=== PATIENT | female | born 1990 | race African-American/Black ===

== ENCOUNTER 2016-07-15 15:44 | Emergency (ER) | payer OTHER ==
[2016-07-15 16:12] VITALS: BP 120/72; PULSE 87; RESP 20; TEMP 97.7
[2016-07-15] MEDS ORDERED: diphenhydrAMINE 50 MG CAP PO STA (16:36)
[2016-07-15] MEDS ORDERED: IBUPROFEN 600 MG STARTER PACK 4 TAB BTL PO STA (16:36)
--- NOTE | 2016-07-15 16:50 | XR ---
EXAMINATION TYPE: XR chest 2V DATE OF EXAM: 07/15/2016 4:41 PM HISTORY: Pain. REFERENCE: Previous study dated 01/22/2016. FINDINGS: The lungs are clear. Pleural spaces are clear. Heart size is normal. IMPRESSION: NO ACTIVE INTRATHORACIC DISEASE.
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
== END 2016-07-15 17:34 | disposition home or self-care (01) ==
LOC: EC 15:44
DX: S02.5XXA Fracture of tooth (traumatic), initial encounter for closed fracture (principal); K02.9 Dental caries, unspecified; K04.7 Periapical abscess without sinus; B34.9 Viral infection, unspecified; L50.9 Urticaria, unspecified; F17.200 Nicotine dependence, unspecified, uncomplicated; Z79.3 Long term (current) use of hormonal contraceptives; Z88.0 Allergy status to penicillin; Z91.041 Radiographic dye allergy status; X58.XXXA Exposure to other specified factors, initial encounter
CPT/HCPCS: 71020; 99282

== ENCOUNTER 2016-08-18 15:32 | Emergency (ER) | payer OTHER ==
[2016-08-18] MEDS ORDERED: SODIUM CHLORIDE 0.9% 1,000 ML IV STA ×2 (16:17)
[2016-08-18] MEDS ORDERED: HYDROmorphone 1 MG/ML 1 ML SYRINGE IVP STA (16:18)
[2016-08-18] MEDS ORDERED: ONDANSETRON 4 MG/2 ML VIAL IVP STA (16:18)
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
[2016-08-18 16:40] LABS: Appearance,Urine Cloudy (Clear); Bacteria,Urine Few /hpf; Bilirubin,Urine Negative (Negative); Glucose,Urine (UA) Negative (Negative); Ketones,Urine Negative (Negative); Leukocyte Esterase,Urine Moderate (Negative); Nitrite,Urine Negative (Negative); PH, Urine 5.5 (5.0-8.0); Particle Count 10154; Protein,Urine Negative (Negative); RBC,Urine 2 /hpf (0-5); Specific Gravity,Urine 1.008 (1.001-1.035); Squamous Epithelial Cell,Urine 13 /hpf (0-4); UA Billing (MACRO vs. MICRO) MICRO; Urobilinogen,Urine <2.0 mg/dL (<2.0); WBC,Urine 4 /hpf (0-5)
[2016-08-18 16:54] LABS: Basophils % (A) 0 %; CH 26.6; CHCM 31.5; Eosinophils # (A) 0.1 k/uL (0-0.7); Eosinophils % (A) 1 %; HCT 45.2 % (34.0-46.0); HDW 2.35; HGB 14.1 gm/dL (11.4-16.0); Luc # (Auto) 0.09; Luc % (Auto) 2; Lymphocytes # (A) 2.1 k/uL (1.0-4.8); Lymphocytes % (A) 35 %; MCH 26.4 pg (25.0-35.0); MCHC 31.1 g/dL (31.0-37.0); MCV 84.9 fL (80.0-100.0); Mean Platelet Volume 6.3; Monocytes # (A) 0.2 k/uL (0-1.0); Monocytes % (A) 4 %; Neutrophils # (A) 3.4 k/uL (1.3-7.7); Neutrophils % (A) 58 %; RBC 5.32 m/uL (3.80-5.40); RDW 14.2 % (11.5-15.5); WBC 5.8 k/uL (3.8-10.6); WBC (Perox) 5.99
[2016-08-18 17:01] LABS: ALT 29 U/L (9-52); AST 19 U/L (14-36); Alkaline Phosphatase 64 U/L (38-126); Amylase 50 U/L (30-110); Anion Gap 6 mmol/L; Blood Urea Nitrogen 14 mg/dL (7-17); Calcium 9.2 mg/dL (8.4-10.2); Carbon Dioxide 26 mmol/L (22-30); Chloride 109 mmol/L (98-107); Glucose 83 mg/dL (74-99); Non-African American GFR(MDRD) >60 (>60 ml/min/1.73 sqM); Potassium 4.1 mmol/L (3.5-5.1); Sodium 141 mmol/L (137-145); Total Bilirubin 0.6 mg/dL (0.2-1.3); Total Protein 6.1 g/dL (6.3-8.2)
[2016-08-18 17:09] LABS: Creatine Kinase 74 U/L (30-135)
[2016-08-18 17:23] LABS: Creatine Kinase MB 0.5 ng/mL (0.0-2.4); Troponin I <0.012 ng/mL (0.000-0.034)
--- NOTE | 2016-08-18 17:29 | US ---
EXAMINATION TYPE: US transvaginal DATE OF EXAM: 08/18/2016 5:03 PM COMPARISON: NONE CLINICAL HISTORY: pain. Abd and back pain TECHNIQUE: TV Date of LMP: 08/11/2016 EXAM MEASUREMENTS: Uterus: 8.4 x 4.8 x 3.8 cm Endometrial Stripe: 0.4 cm Right Ovary: 2.3 x 2.1 x 1.7 cm Left Ovary: 3.2 x 3.2 x 3.4 cm 1. Uterus: Anteverted wnl 2. Endometrium: wnl 3. Right Ovary: wnl 4. Left Ovary: 3.6cm simple cyst seen Spectral, color and waveform doppler imaging shows good arterial and venous flow within the lt ovar y; there is no evidence for ovarian torsion. Rt ovary sits under uterus and too difficult to penetrat e to sample blood flow, but appears wnl. 5. Bilateral Adnexa: wnl 6. Posterior cul-de-sac: wnl IMPRESSION: There is a simple left ovarian cyst. Normal uterus and endometrium.
--- NOTE | 2016-08-18 17:32 | XR ---
EXAMINATION TYPE: XR chest 2V DATE OF EXAM: 08/18/2016 5:14 PM COMPARISON: 07/15/2016 HISTORY: Cough TECHNIQUE: Frontal and lateral views of the chest are obtained. FINDINGS: Heart and mediastinum are normal. Lungs are clear. Diaphragm is normal. Bony thorax appear s normal. IMPRESSION: Normal chest. No change.
[2016-08-18 17:43] VITALS: BP 115/55; PULSE 78; RESP 18; TEMP 98.6
[2016-08-18] MEDS ORDERED: KETOROLAC 30 MG/ML 1 ML VIAL IVP STA (17:57)
== END 2016-08-18 18:28 | disposition home or self-care (01) ==
LOC: EC 15:32
DX: J42 Unspecified chronic bronchitis (principal); N83.202 Unspecified ovarian cyst, left side; R11.2 Nausea with vomiting, unspecified; R19.7 Diarrhea, unspecified; F17.200 Nicotine dependence, unspecified, uncomplicated; Z79.3 Long term (current) use of hormonal contraceptives; Z91.040 Latex allergy status
CPT/HCPCS: 36415; 80053; 82150; 82550; 82553; 83690; 84484; 85025; 81001; 81025; 87502; 71020; 93976; 76830; 99285; 96374; 96375 ×2; 96361; J2405; J1885; J1170

== ENCOUNTER 2016-09-25 10:50 | Emergency (ER) | payer OTHER ==
[2016-09-25 11:03] VITALS: TEMP 98.2
[2016-09-25] MEDS ORDERED: ONDANSETRON ODT 4 MG TAB PO STA (11:41)
[2016-09-25] MEDS ORDERED: HYDROmorphone 1 MG/ML 1 ML SYRINGE IM STA (11:41)
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
--- NOTE | 2016-09-25 12:04 | CT ---
EXAMINATION TYPE: CT brain wo con DATE OF EXAM: 09/25/2016 COMPARISON: Prior CT brain 17 June 2015 HISTORY: Lt side head pain CT DLP: 1054.2 mGycm Automated exposure control for dose reduction was used. FINDINGS: There is no acute intracranial hemorrhage, mass effect, or midline shift identified. The ventricles and sulci are within normal limits in size. The globes are intact and the visualized sinuses are rem arkable for inflammatory change in the ethmoid air cells.. IMPRESSION: No acute intracranial hemorrhage, mass effect, or midline shift is seen. Sinus disease.
[2016-09-25 12:18] VITALS: BP 131/81; PULSE 89; RESP 18
== END 2016-09-25 12:27 | disposition home or self-care (01) ==
LOC: EC 10:50
DX: J01.90 Acute sinusitis, unspecified (principal); R51 Headache; R11.0 Nausea; F17.210 Nicotine dependence, cigarettes, uncomplicated; Z79.3 Long term (current) use of hormonal contraceptives; Z91.041 Radiographic dye allergy status
CPT/HCPCS: 70450; 99284; 96372; J1170

== ENCOUNTER 2016-09-28 04:29 | Emergency (ER) | payer OTHER ==
[2016-09-28 04:38] VITALS: TEMP 97.7
[2016-09-28] MEDS ORDERED: METOCLOPRAMIDE 5 MG/ML 2 ML VIAL IVP STA (04:59)
[2016-09-28] MEDS ORDERED: SODIUM CHLORIDE 0.9% 1,000 ML IV ONE (04:59)
[2016-09-28] MEDS ORDERED: KETOROLAC 30 MG/ML 1 ML VIAL IVP STA (04:59)
[2016-09-28] MEDS ORDERED: OXYMETAZOLINE 0.05% NASL SPRAY 15 ML NASAL STA (05:25)
[2016-09-28 05:26] LABS: Basophils # (A) 0.1 k/uL (0-0.2); Basophils % (A) 1 %; CH 26.3; CHCM 31.4; Eosinophils # (A) 0.1 k/uL (0-0.7); Eosinophils % (A) 1 %; HCT 43.9 % (34.0-46.0); HDW 2.24; HGB 13.8 gm/dL (11.4-16.0); Luc # (Auto) 0.13; Luc % (Auto) 2; Lymphocytes # (A) 1.4 k/uL (1.0-4.8); Lymphocytes % (A) 18 %; MCH 26.5 pg (25.0-35.0); MCHC 31.5 g/dL (31.0-37.0); MCV 84.1 fL (80.0-100.0); Mean Platelet Volume 6.4; Monocytes # (A) 0.3 k/uL (0-1.0); Monocytes % (A) 4 %; Neutrophils # (A) 5.7 k/uL (1.3-7.7); Neutrophils % (A) 74 %; RBC 5.22 m/uL (3.80-5.40); RDW 13.2 % (11.5-15.5); WBC 7.8 k/uL (3.8-10.6); WBC (Perox) 7.74
[2016-09-28] MEDS ORDERED: PROPARACAINE 0.5% OPHTH DROPS 15 ML BTL LEFT EYE SCH (05:30)
[2016-09-28 05:40] LABS: Anion Gap 10 mmol/L; Blood Urea Nitrogen 11 mg/dL (7-17); C Reactive Protein <5.0 mg/L (<10.0); Calcium 9.2 mg/dL (8.4-10.2); Carbon Dioxide 20 mmol/L (22-30); Chloride 111 mmol/L (98-107); Glucose 83 mg/dL (74-99); Non-African American GFR(MDRD) >60 (>60 ml/min/1.73 sqM); Potassium 3.8 mmol/L (3.5-5.1); Sodium 141 mmol/L (137-145)
--- NOTE | 2016-09-28 06:27 | ED ---
Headache HPI - General Chief Complaint: Headache Stated Complaint: headache,neck pain Time Seen by Provider: 09/28/16 04:46 Mode of arrival: wheelchair Limitations: no limitations - History of Present Illness Initial Comments: Patient is a 26-year-old woman who comes in for reevaluation of a left-sided headache. She states it's been going on 2 days now. She was seen here yesterday, had a computed tomography scan was told she has sinusitis. She states that in addition to the symptoms she was having yesterday, the left side of her scalp is somewhat tender. She states that headache has not worsened. She has not had any change in vision, speech, or swallowing. She is not having any change in hearing. She is not having any strokelike symptoms, including no weakness or numbness of the extremities. Patient describes the headache as seeming to have 2 components. She has a pressure component to the left facial area. She has a burning and tingling sensation to the left side of the face as well. She rates the pain as constant, severe, but unchanged from yesterday. Symptoms are worse if she touches the left side of her scalp. She has not noted any relieving factors. No associated neck stiffness. She has not noted a rash. MD Complaint: headache -: days(s) Onset Description: gradual Location: left, frontal, facial Severity: severe Quality: aching, other (Burning) Consistency: constant Improves With: nothing Worsens With: none Treatments Prior to Arrival: prescription analgesic - Related Data Home Medications Medication Instructions Recorded Confirmed Etonogestrel [Nexplanon ( 68 gm IM DIRECTED 07/15/16 09/28/16 control implant)] Acetaminophen [Tylenol] 650 mg PO Q6H PRN 08/18/16 09/28/16 Ibuprofen [Motrin] 200 - 400 mg PO Q6HR PRN 08/18/16 09/28/16 Previous Rx's Medication Instructions Recorded Dicyclomine [Bentyl] 20 mg PO QID #20 tablet 08/18/16 Naproxen 500 mg PO Q12HR 14 Days 08/18/16 Ondansetron Odt [Zofran ODT] 4 mg PO Q8HR PRN #20 tab 08/18/16 Amoxicillin/Potassium Clav 1 each PO Q12HR #20 tab 09/25/16 [Augmentin 875-125 Tablet] Hydrocodone/Acetaminophen [[place] 1 each PO Q6HR PRN #10 tab 09/25/16 5-325] valACYclovir HCL [Valtrex] 1,000 mg PO TID #21 tablet 09/28/16 Allergies Allergy/AdvReac Type Severity Reaction Status Date / Time Iodinated Contrast Media - Allergy BURNING Verified 08/18/16 16:06 Oral and FROM THE INSIDE/ITCHING Review of Systems ROS Statement: Those systems with pertinent positive or pertinent negative responses have been documented in the HPI. ROS Other: All systems not noted in ROS Statement are negative. Past Medical History Past Medical History: Asthma, COPD Additional Past Medical History / Comment(s): concussions History of Any Multi-Drug Resistant Organisms: None Reported Additional Past Surgical History / Comment(s): d&c Past Psychological History: Anxiety, Bipolar, Depression Smoking Status: Current every day smoker Past Alcohol Use History: Occasional Past Drug Use History: Marijuana General Exam Limitations: no limitations General appearance: alert, in no apparent distress, obese Head exam: Present: atraumatic, normocephalic Eye exam: Present: normal appearance, PERRL, EOMI, conjunctival injection (Left) . Absent: scleral icterus, periorbital swelling, periorbital tenderness Pupils: Present: other (Intraocular pressure by the iCare device is 21.) ENT exam: Present: normal oropharynx, mucous membranes moist, TM's normal bilaterally, normal external ear exam Neck exam: Present: normal inspection, full ROM, lymphadenopathy. Absent: tenderness, meningismus Respiratory exam: Present: normal lung sounds bilaterally. Absent: respiratory distress, wheezes, rales, rhonchi, stridor Cardiovascular Exam: Present: normal rhythm, tachycardia, normal heart sounds. Absent: systolic murmur, diastolic murmur, rubs, gallop GI/Abdominal exam: Present: soft. Absent: distended, tenderness, guarding, rebound, mass Extremities exam: Present: normal inspection, normal capillary refill. Absent: pedal edema, calf tenderness Neurological exam: Present: alert, oriented X3, CN II-XII intact, normal gait. Absent: motor sensory deficit Skin exam: Present: warm, dry, intact, normal color. Absent: rash, cyanosis, diaphoretic, erythema, petechiae, pallor, mottled Course Vital Signs 09/28/16 09/28/16 04:33 06:45 Temperature 97.7 F Pulse Rate 135 H 78 Respiratory 20 16 Rate Blood Pressure 140/67 100/54 O2 Sat by Pulse 94 L Oximetry Medical Decision Making - Medical Decision Making The patient does have marked tenderness of the skin on the left scalp, and I suspect the patient may have the onset of zoster. She does state that her brother had this. I did apply fluorescein stain and examined the left eye, there is no dendrite. Discussed return parameters. Started Valtrex here, discussed appropriate follow -up and further care including return parameters. - Lab Data Result diagrams: 09/28/16 05:00 09/28/16 05:00 Lab Results 09/28/16 09/28/16 Range/Units 05:00 05:00 WBC 7.8 (3.8-10.6) k/uL RBC 5.22 (3.80-5.40) m/uL Hgb 13.8 (11.4-16.0) gm/dL Hct 43.9 (34.0-46.0) % MCV 84.1 (80.0-100.0) fL MCH 26.5 (25.0-35.0) pg MCHC 31.5 (31.0-37.0) g/dL RDW 13.2 (11.5-15.5) % Plt Count 217 (150-450) k/uL Neutrophils % 74 % Lymphocytes % 18 % Monocytes % 4 % Eosinophils % 1 % Basophils % 1 % Neutrophils # 5.7 (1.3-7.7) k/uL Lymphocytes # 1.4 (1.0-4.8) k/uL Monocytes # 0.3 (0-1.0) k/uL Eosinophils # 0.1 (0-0.7) k/uL Basophils # 0.1 (0-0.2) k/uL ESR 10 (0-20) mm/hr Sodium 141 (137-145) mmol/L Potassium 3.8 (3.5-5.1) mmol/L Chloride 111 H (98-107) mmol/L Carbon Dioxide 20 L (22-30) mmol/L Anion Gap 10 mmol/L BUN 11 (7-17) mg/dL Creatinine 0.80 (0.52-1.04) mg/dL Est GFR (MDRD) Af Amer >60 (>60 ml/min/1.73 sqM) Est GFR (MDRD) Non-Af >60 (>60 ml/min/1.73 sqM) Glucose 83 (74-99) mg/dL Calcium 9.2 (8.4-10.2) mg/dL C-Reactive Protein <5.0 (<10.0) mg/L Disposition Clinical Impression: Headache, Sinusitis, acute Narrative: suspected herpes zoster Disposition: HOME SELF-CARE Condition: Fair Instructions: Acute Headache (ED) Prescriptions: valACYclovir HCL [Valtrex] 1,000 mg PO TID #21 tablet Referrals: None,Stated [Primary Care Provider] - 1-2 days
[2016-09-28] MEDS ORDERED: valACYclovir 500 MG TAB PO STA (06:28)
[2016-09-28 06:32] LABS: Erythrocyte Sedimentation Rate 10 mm/hr (0-20)
[2016-09-28 06:46] VITALS: BP 100/54; PULSE 78; RESP 16
[2016-09-28] MEDS ORDERED: HYDROcodone/APAP 5-325MG 1 EACH TAB PO STA (06:50)
== END 2016-09-28 06:55 | disposition home or self-care (01) ==
LOC: EC 04:29
DX: J01.90 Acute sinusitis, unspecified (principal); R51 Headache; M54.2 Cervicalgia; F17.200 Nicotine dependence, unspecified, uncomplicated; Z79.3 Long term (current) use of hormonal contraceptives; Z91.041 Radiographic dye allergy status
CPT/HCPCS: 36415; 80048; 85652; 85025; 86140; 99284; 96374; 96375; 96361; J2765; J1885

== ENCOUNTER 2017-12-23 11:09 | Emergency (ER) | payer OTHER ==
[2017-12-23] MEDS ORDERED: SODIUM CHLORIDE 0.9% 1,000 ML IV ONE (11:52)
[2017-12-23] MEDS ORDERED: KETOROLAC 30 MG/ML 1 ML VIAL IVP STA (11:52)
[2017-12-23 12:16] LABS: Basophils # (A) 0.1 k/uL (0-0.2); Basophils % (A) 1 %; Eosinophils # (A) 0.2 k/uL (0-0.7); Eosinophils % (A) 2 %; HCT 42.4 % (34.0-46.0); HGB 13.9 gm/dL (11.4-16.0); Lymphocytes # (A) 0.7 k/uL (1.0-4.8); Lymphocytes % (A) 6 %; MCH 26.6 pg (25.0-35.0); MCHC 32.8 g/dL (31.0-37.0); MCV 81.1 fL (80.0-100.0); Mean Platelet Volume 6.4; Monocytes # (A) 0.5 k/uL (0-1.0); Monocytes % (A) 4 %; Neutrophils # (A) 9.9 k/uL (1.3-7.7); Neutrophils % (A) 87 %; Platelet Count 215 k/uL (150-450); RBC 5.23 m/uL (3.80-5.40); RDW 13.3 % (11.5-15.5); WBC 11.4 k/uL (3.8-10.6)
[2017-12-23 12:21] LABS: Appearance,Urine Cloudy (Clear); Bacteria,Urine Rare /hpf; Bilirubin,Urine Negative (Negative); Blood,Urine Large (Negative); Budding Yeast,Urine Few /hpf; Color,Urine Light Yellow; Glucose,Urine (UA) Negative (Negative); Ketones,Urine Negative (Negative); Leukocyte Esterase,Urine Large (Negative); Mucus,Urine Rare /hpf; Nitrite,Urine Negative (Negative); Protein,Urine 1+ (Negative); RBC,Urine 10 /hpf (0-5); Specific Gravity,Urine 1.013 (1.001-1.035); Squamous Epithelial Cell,Urine 7 /hpf (0-4); Urobilinogen,Urine <2.0 mg/dL (<2.0); WBC,Urine >182 /hpf (0-5)
[2017-12-23] MEDS ORDERED: cefTRIAXone IN SWFI 2,000 MG/20 ML SYRINGE IVP STA (12:25)
[2017-12-23 12:26] LABS: ALT 27 U/L (9-52); AST 15 U/L (14-36); Albumin 3.5 g/dL (3.5-5.0); Alkaline Phosphatase 75 U/L (38-126); Anion Gap 7 mmol/L; Blood Urea Nitrogen 9 mg/dL (7-17); Calcium 8.9 mg/dL (8.4-10.2); Carbon Dioxide 24 mmol/L (22-30); Chloride 107 mmol/L (98-107); Glucose 92 mg/dL (74-99); Potassium 4.1 mmol/L (3.5-5.1); Sodium 138 mmol/L (137-145); Total Bilirubin 0.5 mg/dL (0.2-1.3); Total Protein 6.3 g/dL (6.3-8.2)
--- NOTE | 2017-12-23 12:27 | ED ---
Female Urogenital HPI - General Chief complaint: Urogenital Stated complaint: back pain Time Seen by Provider: 12/23/17 11:34 Source: patient, RN notes reviewed Mode of arrival: ambulatory Limitations: no limitations - History of Present Illness Initial comments: This a 27-year-old female presents emergency Department chief complaint of dysuria, flank pain. Patient states his started over the last week because she' s been holding her urine. Patient states that it hurts to urinate and it miller. Patient denies any chance of . She has no vaginal been no vaginal discharge. Patient states her last mental cycle was 11 days ago. Patient denies any fever. States that she's had some chills. Patient denies any chest pain, shortness breath. Patient states that makes her symptoms better. She's had no diarrhea no constipation. Last Menstrual Period: 12/12/17 - Related Data Home Medications Medication Instructions Recorded Confirmed Etonogestrel [Nexplanon ( 68 gm IM DIRECTED 07/15/16 09/28/16 control implant)] Acetaminophen [Tylenol] 650 mg PO Q6H PRN 08/18/16 09/28/16 Ibuprofen [Motrin] 200 - 400 mg PO Q6HR PRN 08/18/16 09/28/16 Previous Rx's Medication Instructions Recorded Dicyclomine [Bentyl] 20 mg PO QID #20 tablet 08/18/16 Naproxen 500 mg PO Q12HR 14 Days tab 08/18/16 Ondansetron Odt [Zofran ODT] 4 mg PO Q8HR PRN #20 tab 08/18/16 Amoxicillin/Potassium Clav 1 each PO Q12HR #20 tab 09/25/16 [Augmentin 875-125 Tablet] Hydrocodone/Acetaminophen [[place] 1 each PO Q6HR PRN #10 tab 09/25/16 5-325] valACYclovir HCL [Valtrex] 1,000 mg PO TID #21 tablet 09/28/16 Cephalexin [Keflex] 500 mg PO Q6HR #40 cap 12/23/17 Allergies Allergy/AdvReac Type Severity Reaction Status Date / Time Iodinated Contrast- Oral and Allergy BURNING Verified 12/23/17 11:32 IV Dye FROM THE INSIDE/ITCHING Review of Systems ROS Statement: Those systems with pertinent positive or pertinent negative responses have been documented in the HPI. ROS Other: All systems not noted in ROS Statement are negative. Past Medical History Past Medical History: Asthma, COPD Additional Past Medical History / Comment(s): concussions History of Any Multi-Drug Resistant Organisms: None Reported Additional Past Surgical History / Comment(s): d&c Past Psychological History: Anxiety, Bipolar, Depression Smoking Status: Current every day smoker Past Alcohol Use History: Occasional Past Drug Use History: Marijuana General Exam Limitations: no limitations General appearance: alert, in no apparent distress Head exam: Present: atraumatic, normocephalic, normal inspection Neck exam: Present: normal inspection. Absent: tenderness, meningismus, lymphadenopathy Respiratory exam: Present: normal lung sounds bilaterally. Absent: respiratory distress, wheezes, rales, rhonchi, stridor Cardiovascular Exam: Present: regular rate, normal rhythm, normal heart sounds. Absent: systolic murmur, diastolic murmur, rubs, gallop, clicks GI/Abdominal exam: Present: soft, tenderness (mild suprapubic tenderness), normal bowel sounds. Absent: distended, guarding, rebound, rigid Back exam: Present: CVA tenderness (R), CVA tenderness (L) Skin exam: Present: warm, dry, intact, normal color. Absent: rash Course Vital Signs 12/23/17 12/23/17 11:30 13:26 Temperature 98.5 F Pulse Rate 98 87 Respiratory 18 22 Rate Blood Pressure 128/82 108/55 O2 Sat by Pulse 95 97 Oximetry Medical Decision Making - Medical Decision Making 27-year-old female presented emergency department for flank pain, dysuria. Patient does have evidence of urinary tract infection mild leukocytosis. Patient may have early signs of pyelonephritis. Patient will be discharged on antibiotics that she did receive Rocephin emergency department. Patient's found to be also which was not affected by patient. Patient ultrasound does not reveal IUP but beta hCG is currently 125. Patient will follow-up with [facility]. Patient return for any worsening symptoms. - Lab Data Result diagrams: 12/23/17 12:00 12/23/17 12:00 Lab Results 12/23/17 12/23/17 12/23/17 Range/Units 12:00 12:00 12:00 WBC 11.4 H (3.8-10.6) k/uL RBC 5.23 (3.80-5.40) m/uL Hgb 13.9 (11.4-16.0) gm/dL Hct 42.4 (34.0-46.0) % MCV 81.1 (80.0-100.0) fL MCH 26.6 (25.0-35.0) pg MCHC 32.8 (31.0-37.0) g/dL RDW 13.3 (11.5-15.5) % Plt Count 215 (150-450) k/uL Neutrophils % 87 % Lymphocytes % 6 % Monocytes % 4 % Eosinophils % 2 % Basophils % 1 % Neutrophils # 9.9 H (1.3-7.7) k/uL Lymphocytes # 0.7 L (1.0-4.8) k/uL Monocytes # 0.5 (0-1.0) k/uL Eosinophils # 0.2 (0-0.7) k/uL Basophils # 0.1 (0-0.2) k/uL Sodium (137-145) mmol/L Potassium (3.5-5.1) mmol/L Chloride (98-107) mmol/L Carbon Dioxide (22-30) mmol/L Anion Gap mmol/L BUN (7-17) mg/dL Creatinine (0.52-1.04) mg/dL Est GFR (CKD-EPI)AfAm (>60 ml/min/1.73 sqM) Est GFR (CKD-EPI)NonAf (>60 ml/min/1.73 sqM) Glucose (74-99) mg/dL Calcium (8.4-10.2) mg/dL Total Bilirubin (0.2-1.3) mg/dL AST (14-36) U/L ALT (9-52) U/L Alkaline Phosphatase (38-126) U/L Total Protein (6.3-8.2) g/dL Albumin (3.5-5.0) g/dL HCG, Quant mIU/mL Urine Color Light Yellow Urine Appearance Cloudy H (Clear) Urine pH 6.0 (5.0-8.0) Ur Specific [place] 1.013 (1.001-1.035) Urine Protein 1+ H (Negative) Urine Glucose (UA) Negative (Negative) Urine Ketones Negative (Negative) Urine Blood Large H (Negative) Urine Nitrite Negative (Negative) Urine Bilirubin Negative (Negative) Urine Urobilinogen <2.0 (<2.0) mg/dL Ur Leukocyte Esterase Large H (Negative) Urine RBC 10 H (0-5) /hpf Urine WBC >182 H (0-5) /hpf Ur Squamous Epith Cells 7 H (0-4) /hpf Urine Bacteria Rare H (None) /hpf Urine Mucus Rare H (None) /hpf Urine Yeast (Budding) Few H (None) /hpf Urine HCG, Qual Detected (Not Detectd) Blood Type Blood Type Recheck 12/23/17 12/23/17 12/23/17 Range/Units 12:00 13:14 13:14 WBC (3.8-10.6) k/uL RBC (3.80-5.40) m/uL Hgb (11.4-16.0) gm/dL Hct (34.0-46.0) % MCV (80.0-100.0) fL MCH (25.0-35.0) pg MCHC (31.0-37.0) g/dL RDW (11.5-15.5) % Plt Count (150-450) k/uL Neutrophils % % Lymphocytes % % Monocytes % % Eosinophils % % Basophils % % Neutrophils # (1.3-7.7) k/uL Lymphocytes # (1.0-4.8) k/uL Monocytes # (0-1.0) k/uL Eosinophils # (0-0.7) k/uL Basophils # (0-0.2) k/uL Sodium 138 (137-145) mmol/L Potassium 4.1 (3.5-5.1) mmol/L Chloride 107 (98-107) mmol/L Carbon Dioxide 24 (22-30) mmol/L Anion Gap 7 mmol/L BUN 9 (7-17) mg/dL Creatinine 0.75 (0.52-1.04) mg/dL Est GFR (CKD-EPI)AfAm >90 (>60 ml/min/1.73 sqM) Est GFR (CKD-EPI)NonAf >90 (>60 ml/min/1.73 sqM) Glucose 92 (74-99) mg/dL Calcium 8.9 (8.4-10.2) mg/dL Total Bilirubin 0.5 (0.2-1.3) mg/dL AST 15 (14-36) U/L ALT 27 (9-52) U/L Alkaline Phosphatase 75 (38-126) U/L Total Protein 6.3 (6.3-8.2) g/dL Albumin 3.5 (3.5-5.0) g/dL HCG, Quant 124.9 mIU/mL Urine Color Urine Appearance (Clear) Urine pH (5.0-8.0) Ur Specific [place] (1.001-1.035) Urine Protein (Negative) Urine Glucose (UA) (Negative) Urine Ketones (Negative) Urine Blood (Negative) Urine Nitrite (Negative) Urine Bilirubin (Negative) Urine Urobilinogen (<2.0) mg/dL Ur Leukocyte Esterase (Negative) Urine RBC (0-5) /hpf Urine WBC (0-5) /hpf Ur Squamous Epith Cells (0-4) /hpf Urine Bacteria (None) /hpf Urine Mucus (None) /hpf Urine Yeast (Budding) (None) /hpf Urine HCG, Qual (Not Detectd) Blood Type O Positive Blood Type Recheck No Disposition Clinical Impression: UTI (urinary tract infection), Disposition: HOME SELF-CARE Condition: Stable Instructions: Urinary Tract Infection in Women (ED), (ED) Additional Instructions: Please return to the Emergency Department if symptoms worsen or any other concerns. Prescriptions: Cephalexin [Keflex] 500 mg PO Q6HR #40 cap Is patient prescribed a controlled substance at d/c from ED?: No Referrals: Jose Alfredo Brady DO [STAFF PHYSICIAN] - 1-2 days Time of Disposition: 13:59
[2017-12-23] MEDS ORDERED: METOCLOPRAMIDE 5 MG/ML 2 ML VIAL IVP STA (13:18)
--- NOTE | 2017-12-23 13:23 | US ---
EXAMINATION TYPE: OB<14 weeks DATE OF EXAM: 08/01/17 COMPARISON: NONE CLINICAL HISTORY: Pain. EXAM PERFORMED: Transvaginal (TV) and Transabdominal (TA) EXAM MEASUREMENTS: GESTATIONAL AGE / DATING Physician Established: Not yet established Dates by LMP: (1 weeks/4 days) EDC: 09/18/17 Dates by First Scan: No previous this is first scan Dates by Current Scan for: Unable to date by today's study MATERNAL ANATOMY Uterus: 10.2 x 4.2 x 6.0 Endometrium 0.6cm, scattered echogenic foci seen within fundal portions of endometrium, mid lower por tions shows a small amount of ff Right Ovary: 2.2 x 1.7 x 1.6cm Left Ovary: 2.8 x 2.1 x 2.4cm Post CDS / Adnexa: wnl Presence of free fluid: small amount in cul de sac Presence of corpus luteal cyst: possible left measuring 1.3 x 1.6 x 1.5 GESTATION / SURVEY IUP: No IUP seen at this time Date of LMP: 12/12/17 Beta HcG (if available): detected, no current number Patient moving throughout test, technically difficult. IMPRESSION: WE HAVE NOT IDENTIFIED INTRAUTERINE OR EXTRAUTERINE GESTATION AT THIS TIME. SHORT-TERM FOLLOW-UP +/- SERIAL BETA HCGS WOULD BE SUGGESTED.
[2017-12-23 13:27] VITALS: BP 108/55; PULSE 87; RESP 22
[2017-12-23 14:19] VITALS: TEMP 98
== END 2017-12-23 14:17 | disposition home or self-care (01) ==
LOC: EC 11:09
DX: O23.40 Unspecified infection of urinary tract in pregnancy, unspecified trimester (principal); Z32.01 Encounter for pregnancy test, result positive; O99.119 Other diseases of the blood and blood-forming organs and certain disorders involving the immune mechanism complicating pregnancy, unspecified trimester; D72.829 Elevated white blood cell count, unspecified; O99.330 Smoking (tobacco) complicating pregnancy, unspecified trimester; F17.200 Nicotine dependence, unspecified, uncomplicated; Z79.3 Long term (current) use of hormonal contraceptives; Z91.041 Radiographic dye allergy status; Z3A.00 Weeks of gestation of pregnancy not specified
CPT/HCPCS: 36415; 86900; 86901; 80053; 85025; 81001; 81025; 84702; 87086; 76801; 76817; 99284; 96374; 96375 ×2; 96361; J2765; J0696; J1885; 87077; 87186

== ENCOUNTER 2018-03-25 13:11 | Observation (INO) | payer OTHER ==
[2018-03-25] MEDS ORDERED: MORPHINE SULFATE 4 MG/ML SYRINGE IVP PRN (13:29)
[2018-03-25] MEDS ORDERED: fentaNYL (PF) 50 MCG/ML 2 ML AMP IVP STA (13:30)
[2018-03-25] MEDS ORDERED: MORPHINE SULFATE 4 MG/ML SYRINGE IVP STA (13:32)
--- NOTE | 2018-03-25 13:37 | ED ---
General Adult HPI - General Chief complaint: Vaginal Bleeding Stated complaint: Vaginal bleeding Source: patient, EMS Mode of arrival: EMS Limitations: no limitations - History of Present Illness Initial comments: Dictation was produced using [employer] dictation software. please excuse any grammatical, word or spelling errors. Chief Complaint: 27-year-old female presents with acute onset vaginal bleeding and pelvic pain. History of Present Illness: Patient is a 27-year-old -[place] female with chief complaint of pelvic pain and vaginal bleeding. Patient is allegedly 11 weeks . She does have established OB care. She states this is her fifth . She has 4 children currently. Patient does report having a D& C in the past. She was at the store when she felt like she has been or so she restarted noted a lot of blood. EMS was called and patient was transferred to the emergency department. EMS reports that there was approximately 2 cans. Blood on site. Patient states she's been bleeding profusely since the onset of her symptoms. She does complain of some pelvic pain. The ROS documented in this emergency department record has been reviewed and confirmed by me. Those systems with pertinent positive or negative responses have been documented in the HPI. All other systems are other negative and/or noncontributory. - Related Data Home Medications Medication Instructions Recorded Confirmed Etonogestrel [Nexplanon ( 68 gm IM DIRECTED 07/15/16 09/28/16 control implant)] Acetaminophen [Tylenol] 650 mg PO Q6H PRN 08/18/16 09/28/16 Ibuprofen [Motrin] 200 - 400 mg PO Q6HR PRN 08/18/16 09/28/16 Previous Rx's Medication Instructions Recorded Dicyclomine [Bentyl] 20 mg PO QID #20 tablet 08/18/16 Naproxen 500 mg PO Q12HR 14 Days tab 08/18/16 Ondansetron Odt [Zofran ODT] 4 mg PO Q8HR PRN #20 tab 08/18/16 Amoxicillin/Potassium Clav 1 each PO Q12HR #20 tab 09/25/16 [Augmentin 875-125 Tablet] Hydrocodone/Acetaminophen [[place] 1 each PO Q6HR PRN #10 tab 09/25/16 5-325] valACYclovir HCL [Valtrex] 1,000 mg PO TID #21 tablet 09/28/16 Cephalexin [Keflex] 500 mg PO Q6HR #40 cap 12/23/17 Allergies Allergy/AdvReac Type Severity Reaction Status Date / Time Iodinated Contrast- Oral and Allergy BURNING Verified 12/23/17 11:32 IV Dye FROM THE INSIDE/ITCHING Review of Systems ROS Statement: Those systems with pertinent positive or pertinent negative responses have been documented in the HPI. ROS Other: All systems not noted in ROS Statement are negative. Past Medical History Past Medical History: Asthma, COPD Additional Past Medical History / Comment(s): concussions History of Any Multi-Drug Resistant Organisms: None Reported Additional Past Surgical History / Comment(s): d&c Past Psychological History: Anxiety, Bipolar, Depression Smoking Status: Current every day smoker Past Alcohol Use History: Occasional Past Drug Use History: Marijuana General Exam - General Exam Comments Initial Comments: PHYSICAL EXAM: General Impression: Alert and oriented x3, acute distress secondary to pain, diaphoretic HEENT: Normocephalic atraumatic, extra-ocular movements intact, pupils equal and reactive to light bilaterally, mucous membranes moist. Cardiovascular: Heart regular rate and rhythm, S1&S2 audible, no murmurs, rubs or gallops Chest: Lungs clear to auscultation bilaterally, no rhonchi, no wheeze, no rales Abdomen: Bowel sounds present, abdomen soft, non-tender, non-distended, no organomegaly Musculoskeletal: Pulses present and equal in all extremities, no peripheral edema Motor: Power 5/5 bilaterally, no focal deficits noted Neurological: CN II-XII grossly intact, no focal motor or sensory deficits noted Skin: Intact with no visualized rashes Limitations: no limitations Course Vital Signs 03/25/18 13:18 Temperature 97.9 F Pulse Rate 122 H Respiratory 18 Rate Blood Pressure 97/72 O2 Sat by Pulse 99 Oximetry Medical Decision Making - Medical Decision Making ED course: 27-year-old -[place] female presents with severe vaginal bleeding and . Patient is allegedly 11 weeks . Vital signs upon arrival shows heart rate of 122, blood pressure 97/72. 2 large-bore IVs were immediately placed. Patient given intravenous fluids. Blood sent off for labs. PROCESS TECHNICIAN was called immediately. PROCESS TECHNICIAN Dr. Silverman is at bedside assisting in the care of this patient. Pelvic exam was performed without any active hemorrhage at this time. O- blood on standby. PROCESS TECHNICIAN requested bedside transabdominal/transvaginal ultrasound. Plan is for patient to go to the operating room for surgical intervention. Disposition Clinical Impression: Vaginal bleeding Disposition: ADMITTED IP TO THIS HOSP Condition: Fair Referrals: None,Stated [Primary Care Provider] - 1-2 days Decision Time: 13:50
[2018-03-25 13:50] LABS: Basophils % (A) 1 %; Eosinophils # (A) 0.4 k/uL (0-0.7); Eosinophils % (A) 4 %; HCT 43.4 % (34.0-46.0); HGB 14.4 gm/dL (11.4-16.0); Lymphocytes % (A) 23 %; MCH 27.5 pg (25.0-35.0); MCHC 33.1 g/dL (31.0-37.0); MCV 83.1 fL (80.0-100.0); Mean Platelet Volume 6.6; Monocytes # (A) 0.6 k/uL (0-1.0); Monocytes % (A) 7 %; Neutrophils # (A) 5.5 k/uL (1.3-7.7); Neutrophils % (A) 63 %; Platelet Count 234 k/uL (150-450); RBC 5.23 m/uL (3.80-5.40); RDW 14.4 % (11.5-15.5); WBC 8.6 k/uL (3.8-10.6)
[2018-03-25] MEDS ORDERED: NALOXONE 0.4 MG/ML 1 ML VIAL IV PRN (13:50)
[2018-03-25 13:52] LABS: ALT 24 U/L (9-52); AST 18 U/L (14-36); Albumin 3.9 g/dL (3.5-5.0); Alkaline Phosphatase 62 U/L (38-126); Anion Gap 6 mmol/L; Blood Urea Nitrogen 11 mg/dL (7-17); Calcium 9.3 mg/dL (8.4-10.2); Carbon Dioxide 24 mmol/L (22-30); Chloride 111 mmol/L (98-107); Glucose 109 mg/dL (74-99); Potassium 3.9 mmol/L (3.5-5.1); Sodium 141 mmol/L (137-145); Total Bilirubin 0.5 mg/dL (0.2-1.3); Total Protein 6.7 g/dL (6.3-8.2)
[2018-03-25] MEDS ORDERED: AZITHROMYCIN 500 MG in SODIUM CHLORIDE 0.9% 250 ML IVPB STA ×2 (13:52→14:51)
[2018-03-25] MEDS: AZITHROMYCIN 500 MG in SODIUM CHLORIDE 0.9% 250 ML IVPB SCH ×2 (14:08→16:35)
[2018-03-25] MEDS ORDERED: ONDANSETRON 4 MG/2 ML VIAL IVP STA (14:15)
--- NOTE | 2018-03-25 14:19 | US ---
EXAMINATION TYPE: US pelvis comp w/tv w/doppler DATE OF EXAM: 03/25/2018 COMPARISON: NONE CLINICAL HISTORY: Pain. TECHNIQUE: Transvaginal (TV) and Transabdominal (TA) . Transabdominal sonographic images of the pel vis were acquired. Transvaginal sonographic images were medically necessary to better assess the fol lowing anatomy: Better evaluate irregular endometrium Date of LMP: unknown pt states she had an ultrasound a while ago that would place her at about 11 weeks EXAM MEASUREMENTS: Uterus: 10.1 x 5.2 x 6.3 cm Endometrial Stripe: 3.4 cm Right Ovary: 4.1 x 2.5 x 3.0 cm Left Ovary: Not visualized Limited due to pt tolerance, bladder fill, bowel gas, and urgency to get pt to OR. 1. Uterus: Anteverted wnl 2. Endometrium: Enlarged and Complex with increased vascularity 3. Right Ovary: Cystic area noted measuring 2.7 x 2.2 x 2.3 cm, possible corpus luteal cyst. 4. Left Ovary: Obscured by overlying bowel gas, not visualized Spectral, color and waveform doppler imaging shows good arterial and venous flow within right ovary 5. Bilateral Adnexa: trace free fluid seen, peristalsing bowel 6. Posterior cul-de-sac: trace free fluid seen IMPRESSION: No evidence of intrauterine . Diffuse heterogeneity of the thickened hypervascul ar endometrium and pelvic free fluid raises suspicion for ectopic , endometritis or molar pr egnancy. Correlate with serum beta hCG level. Nonvisualization of the left ovary due to obscuration b y bowel gas.
[2018-03-25] MEDS ORDERED: PROPOFOL 10 MG/ML 20 ML VIAL IV ONE (14:35)
[2018-03-25] MEDS ORDERED: ROCURONIUM BROMIDE 10 MG/ML 10 ML VIAL IV ONE (14:35)
[2018-03-25] MEDS ORDERED: LIDOCAINE 1% INJ 10MG/ML (20 ML MDV) ONE (14:35)
[2018-03-25] MEDS ORDERED: METHYLERGONOVINE 0.2 MG/ML 1 ML AMP ONE (14:35)
[2018-03-25] MEDS ORDERED: NEOSTIGMINE 1 MG/ML 10 ML VIAL ONE (14:35)
[2018-03-25] MEDS ORDERED: GLYCOPYRROLATE 0.2 MG/ML 2 ML VIAL ONE (14:35)
[2018-03-25] MEDS ORDERED: MIDAZOLAM 2 MG/2 ML VIAL ONE (14:35)
[2018-03-25] MEDS ORDERED: ONDANSETRON 4 MG/2 ML VIAL ONE (14:35)
[2018-03-25] MEDS ORDERED: IV FLUID CONTINUATION 1,000 ML IV ONE (14:35)
[2018-03-25] MEDS ORDERED: fentaNYL (PF) 50 MCG/ML 2 ML AMP ONE (14:35)
--- NOTE | 2018-03-25 14:37 | P.HPOB ---
History of Present Illness H&P Date: 03/25/18 Chief Complaint: vaginal bleding with prior documented IUP at care services This is a 27 yo at allegedly 11 weeks gestation noted a heavy vb bleeding episode this am and call EMS. she presented to the ED and VB with clots was noted and was called to evaluate this pt. Pt states she has not received care for this as of yet. she states she was feeling well until the bleeding started, she was found sitting on a step covered with leaves and some bleeding was noted. I noted a large clot a the vaginal opening and some continued bleeding as I talked to the pt. she states she has been concerned she has an STD but was unable to get into see Dr. Witt or the health dept. she had received a fentyl and morphine prior to my arival but was still painful and writhing on the bed. Review of Systems Constitutional: Denies chills, Denies fever Ears, nose, mouth and throat: Denies headache Cardiovascular: Denies edema Respiratory: Denies dyspnea Gastrointestinal: Denies nausea, Denies vomiting Genitourinary: Reports Past Medical History Past Medical History: Asthma, COPD Additional Past Medical History / Comment(s): concussions History of Any Multi-Drug Resistant Organisms: None Reported Additional Past Surgical History / Comment(s): d&c Past Psychological History: Anxiety, Bipolar, Depression Smoking Status: Current every day smoker Past Alcohol Use History: Occasional Past Drug Use History: Marijuana Medications and Allergies Home Medications Medication Instructions Recorded Confirmed Type Etonogestrel [Nexplanon ( 68 gm IM DIRECTED 07/15/16 09/28/16 History control implant)] Acetaminophen [Tylenol] 650 mg PO Q6H PRN 08/18/16 09/28/16 History Dicyclomine [Bentyl] 20 mg PO QID #20 tablet 08/18/16 09/28/16 Rx Ibuprofen [Motrin] 200 - 400 mg PO Q6HR PRN 08/18/16 09/28/16 History Naproxen 500 mg PO Q12HR 14 Days tab 08/18/16 09/28/16 Rx Ondansetron Odt [Zofran ODT] 4 mg PO Q8HR PRN #20 tab 08/18/16 09/28/16 Rx Amoxicillin/Potassium Clav 1 each PO Q12HR #20 tab 09/25/16 09/28/16 Rx [Augmentin 875-125 Tablet] Hydrocodone/Acetaminophen [[place] 1 each PO Q6HR PRN #10 tab 09/25/16 09/28/16 Rx 5-325] valACYclovir HCL [Valtrex] 1,000 mg PO TID #21 tablet 09/28/16 Rx Cephalexin [Keflex] 500 mg PO Q6HR #40 cap 12/23/17 Rx Allergies Allergy/AdvReac Type Severity Reaction Status Date / Time Iodinated Contrast- Oral and Allergy BURNING Verified 12/23/17 11:32 IV Dye FROM THE INSIDE/ITCHING Exam Osteopathic Statement: *. No significant issues noted on an osteopathic structural exam other than those noted in the History and Physical/Consult. Vital Signs Temp Pulse Resp BP Pulse Ox 03/25/18 13:18 97.9 F 122 H 18 97/72 99 Intake and Output 03/24/18 03/25/18 03/25/18 22:59 06:59 14:59 Other: Weight 104.326 kg targeted physical exam was preformed in general this is a well developed AA female in pain, abdomen is soft and non tender. On speculum exam the cervix is slightly open with clots coming from it. on bimanual exam the cervix is firm and tender. bleeding did slow after a clot was passed. lower extremities were normal and trace edema was noted Results Result Diagrams: 03/25/18 13:11 03/25/18 13:11 Abnormal Lab Results - Last 24 Hours (Table) 03/25/18 Range/Units 13:11 Chloride 111 H (98-107) mmol/L Glucose 109 H (74-99) mg/dL Assessment and Plan (1) Missed ab Narrative/Plan: No care but she states she had an ultrasound at 6-7 weeks of centimeters no signs of ectopic no heart tones were noted within the uterus though. Ultrasound was done on the bedside negative for ectopic simple ovarian cyst was noted along with a thickened endometrial stripe with concerns for retained product of conception. Current Visit: Yes Status: Acute Code(s): O02.1 - MISSED SNOMED Code(s): 78298588 (2) Vaginal bleeding Current Visit: Yes Status: Acute Code(s): N93.9 - ABNORMAL UTERINE AND VAGINAL BLEEDING, UNSPECIFIED SNOMED Code(s): 736633310 (3) Marijuana abuse Current Visit: Yes Status: Acute Code(s): F12.10 - CANNABIS ABUSE, UNCOMPLICATED SNOMED Code(s): 12028227 (4) STD exposure Current Visit: Yes Status: Acute Code(s): Z20.2 - CONTACT W AND EXPOSURE TO INFECT W A SEXL MODE OF TRANSMISS SNOMED Code(s): 890093279 (5) Poor dentition Current Visit: Yes Status: Acute Code(s): K08.9 - DISORDER OF TEETH AND SUPPORTING STRUCTURES, UNSPECIFIED SNOMED Code(s): 169333087 Plan: given the amount of bleeding and the amount of POC in the uterus on bedside ultrasound recommend SDC. this is discussed with pt and procedure is reviewed with pt and questions answered given her concerns of std treatment is given for possible gonorrhea/ chlamydia. Time with Patient: Greater than 30
--- NOTE | 2018-03-25 15:01 | P.OP ---
Date of Procedure: 03/25/18 Preoperative Diagnosis: Missed AB, vaginal bleeding Postoperative Diagnosis: Same Procedure(s) Performed: Suction dilation and curettage Anesthesia: EVERETTE Surgeon: Emelyn Silverman Estimated Blood Loss (ml): 50 IV fluids (ml): 300 Urine output (ml): 75 Pathology: other (Endometrial curettings) Condition: stable Disposition: PACU Indications for Procedure: Heavy vaginal bleeding with known AB Operative Findings: Moderate amount of products of conception was noted Description of Procedure: Patient was seen in the routine Department heavy vaginal bleeding was noted. Patient was counseled on the need for suction dilation and curettage given findings of bedside ultrasound. Patient stated understanding wish to proceed and informed consent was obtained. Next Patient was taken to the operating suite where general anesthesia was obtained without difficulty by the anesthesia department. She was prepped and draped in normal sterile fashion in the dorsal lithotomy position. Faulk catheter was then used to drain the bladder clear yellow urine. Speculum placed in the posterior vaginal vault the Clari of the cervix was visualized and grasped with a single-tooth tenaculum. The endocervical canal was then dilated and a 8 mm curved suction curet was placed through the cervix and toward the endometrial cavity once the fundus was felt the suction was operated once in the green the suction was used to clear the uterus of the contents. This was then repeated multiple times until no further products were noted. Bleeding was noted to be minimal at this time. Sharp curettage was performed until a gritty texture was noted around the uterine cavity. This specimen was then sent to pathology for analysis. The single-tooth tenaculum was taken off of the anterior lip of the cervix hemostasis was appreciated. Minimal bleeding was noted from the cervix at this time. COUNTS were correct 2 patient tolerated procedure well was taken the recovery room awake and in stable condition
[2018-03-25] MEDS ORDERED: ACETAMINOPHEN IV (For NPO) 1,000 MG/100 ML VIAL IVPB ONE (15:15)
[2018-03-25] MEDS: HYDROmorphone 1 MG/ML 1 ML SYRINGE IVP ONE ×3 (15:30→15:40)
[2018-03-25 16:42] VITALS: BP 114/56; PULSE 72; RESP 20; TEMP 97.4
[2018-03-25 16:55] VITALS: BMI 37.1
== END 2018-03-25 16:35 | disposition home or self-care (01) ==
LOC: EC 13:11 → 4MS4W 13:50
PROVIDERS: ADMIT Obstetrics & Gynecology Obstetrics; ATTEND Obstetrics & Gynecology Obstetrics
DX: O02.1 Missed abortion (principal); J44.9 Chronic obstructive pulmonary disease, unspecified; N83.209 Unspecified ovarian cyst, unspecified side; F31.9 Bipolar disorder, unspecified; F41.9 Anxiety disorder, unspecified; K08.9 Disorder of teeth and supporting structures, unspecified; Z20.2 Contact with and (suspected) exposure to infections with a predominantly sexual mode of transmission; F17.200 Nicotine dependence, unspecified, uncomplicated; F12.10 Cannabis abuse, uncomplicated; Z79.899 Other long term (current) drug therapy; Z91.041 Radiographic dye allergy status; Z87.820 Personal history of traumatic brain injury
CPT/HCPCS: 59820; 96374; 96375; 99285; 36415; 86900; 86901; 88305; 80053; 85025; 86850; 86920; 84702; 93976; 76856; 76830; G0378; J2250; J2270; J2210; J2710; J2405; J0456; J2001; J0696; J3010; J1170; J0131; J2704

== ENCOUNTER 2018-07-19 01:52 | Emergency (ER) | payer OTHER ==
[2018-07-19] MEDS ORDERED: IPRATROPIUM-ALBUTEROL 3 ML NEB INHALATION STA (02:45)
[2018-07-19] MEDS ORDERED: methylPREDNISolone SOD SUCCI 125 MG/2 ML VIAL IM ONE (02:45)
[2018-07-19] MEDS ORDERED: ONDANSETRON 4 MG ODT STARTER PACK 2 TAB BTL PO STA (02:59)
--- NOTE | 2018-07-19 03:03 | ED ---
Fever HPI - General Source: patient, RN notes reviewed, old records reviewed Mode of arrival: ambulatory Limitations: no limitations <Radha Hackett - Last Filed: 07/19/18 03:51> <Kacie Melendez - Last Filed: 07/19/18 06:19> - General Chief Complaint: Fever Stated Complaint: SOB/Cough/Body Ache Time Seen by Provider: 07/19/18 02:32 - History of Present Illness Initial Comments: 27-year-old female presents emergency department today with complaints of cough congestion and fevers and chills for the past 4 days. Patient's boyfriend was diagnosed with influenza. Patient denies any nausea or vomiting. She reports that she's had also sick contacts with pneumonia. She denies any other complaints. (Radha Hackett) - Related Data Previous Rx's Medication Instructions Recorded Albuterol Inhaler [Ventolin Hfa 1 - 2 puff INHALATION RT-Q6H PRN 07/19/18 Inhaler] #1 inhaler Promethazine/Dextromethorphan 5 ml PO TID #120 ml 07/19/18 [Phenergan DM Syrup] predniSONE 50 mg PO DAILY #5 tablet 07/19/18 Allergies Allergy/AdvReac Type Severity Reaction Status Date / Time Iodinated Contrast- Oral and Allergy BURNING Verified 07/19/18 02:21 IV Dye FROM THE INSIDE/ITCHING Review of Systems ROS Other: All systems not noted in ROS Statement are negative. <Radha Hackett - Last Filed: 07/19/18 03:51> ROS Other: All systems not noted in ROS Statement are negative. <Kacie Melendez P - Last Filed: 07/19/18 06:19> ROS Statement: Those systems with pertinent positive or pertinent negative responses have been documented in the HPI. Past Medical History Past Medical History: Asthma, COPD Additional Past Medical History / Comment(s): concussions, bronchitis History of Any Multi-Drug Resistant Organisms: None Reported Additional Past Surgical History / Comment(s): D & C x2 Past Anesthesia/Blood Transfusion Reactions: No Reported Reaction Past Psychological History: Anxiety, Bipolar, Depression Smoking Status: Current every day smoker Past Alcohol Use History: Occasional Past Drug Use History: Marijuana - Past Family History Mother Family Medical History: Respiratory Disorder <Radha Hackett - Last Filed: 07/19/18 03:51> General Exam Limitations: no limitations <Radha Hackett - Last Filed: 07/19/18 03:51> - General Exam Comments Initial Comments: 27-year-old female. Alert and oriented. No distress. General: Well appearing, well nourished, in no distress. Oriented x 3, normal mood and affect . Ambulating without difficulty. Skin: Good turgor, no rash, unusual bruising or prominent lesions Hair: Normal texture and distribution. HEENT: Head: Normocephalic, atraumatic, no visible or palpable masses, depressions, or scaring. Eyes: Visual acuity intact, conjunctiva clear, sclera non-icteric, EOM intact, PERRL. Ears: EACs clear, TMs translucent & cone of light visualized. hearing intact. Nose: No external lesions, mucosa non-inflamed, septum and turbinates normal Mouth: Mucous membranes moist, no mucosal lesions. Teeth/Gums: No obvious caries or periodontal disease. No gingival inflammation or significant resorption. Pharynx: Mucosa non-inflamed, no tonsillar hypertrophy or exudate Neck: Supple, without lesions, bruits, or adenopathy, thyroid non-enlarged and non-tender Heart: No cardiomegaly or thrills; regular rate and rhythm, no murmur or gallop Lungs: Patient has rhonchi and wheezing noted Abdomen: Bowel sounds normal, no tenderness, organomegaly, masses, or hernia Back: Spine normal without deformity or tenderness, no CVA tenderness Extremities: No amputations or deformities, cyanosis, edema or varicosities, peripheral pulses intact Musculoskeletal: Normal gait and station. No misalignment, asymmetry, crepitation, defects, tenderness, masses, effusions, decreased range of motion, instability, atrophy or abnormal strength or tone in the head, neck, spine, ribs, pelvis or extremities. Neurologic: CN 2-12 normal. Sensation to pain, touch, and proprioception normal. DTRs normal in upper and lower extremities. No pathologic reflexes. (Radha Hackett) Course Vital Signs 07/19/18 07/19/18 07/19/18 02:17 02:58 03:10 Temperature 98.7 F Pulse Rate 101 H 103 H 101 H Respiratory 18 Rate Blood Pressure 102/71 O2 Sat by Pulse 95 Oximetry 07/19/18 04:20 Temperature 98.0 F Pulse Rate 66 Respiratory 20 Rate Blood Pressure 115/73 O2 Sat by Pulse 100 Oximetry Medical Decision Making - Radiology Data Radiology results: report reviewed <Radha Hackett - Last Filed: 07/19/18 03:51> <Kacie Melendez - Last Filed: 07/19/18 06:19> - Medical Decision Making 27-year-old female presents with cough congestion and intermittent fevers and chills for the past week. This time Patient has no nausea or vomiting. Patient has significant cough. Wheezing noted. Given DuoNeb treatment and IM Solu- Medrol. Patient's chest x-ray is negative for any acute process. She is positive for influenza A. Patient will be discharged at this time with prescription for an inhaler and duration cough medication. Discussed alternating Motrin Tylenol. All questions answered return parameters were discussed. (Radha Hackett) I was available for consultation in the emergency department. The history and physical exam were done by the midlevel provider. I was consulted for this patient's care. I reviewed the case with the midlevel provider and based on their presentation of the patient, I agree with the assessment, medical decision making and plan of care as documented. (Kacie Melendez) - Lab Data Lab Results 07/19/18 Range/Units 02:40 Influenza Type A RNA Detected H (Not Detectd) Influenza Type B (PCR) Not Detected (Not Detectd) - Radiology Data Normal chest x-ray. (Radha Hackett) Disposition Is patient prescribed a controlled substance at d/c from ED?: No Time of Disposition: 03:52 <Radha Hackett - Last Filed: 07/19/18 03:51> <Kacie Melendez - Last Filed: 07/19/18 06:19> Clinical Impression: Influenza A Disposition: HOME SELF-CARE Condition: Good Instructions (If sedation given, give patient instructions): Fever in Adults (ED), Influenza (ED) Additional Instructions: Patient bicep close follow-up with primary care physician. Return to the emergency department if any alarming signs or symptoms occur. Patient should take Motrin Tylenol every 4 hours. Use the cough syrup and steroids. Prescriptions: Promethazine/Dextromethorphan [Phenergan DM Syrup] 5 ml PO TID #120 ml predniSONE 50 mg PO DAILY #5 tablet Albuterol Inhaler [Ventolin Hfa Inhaler] 1 - 2 puff INHALATION RT-Q6H PRN #1 inhaler PRN Reason: Shortness Of Breath Referrals: None,Stated [Primary Care Provider] - 1-2 days Regina Burns MD [STAFF PHYSICIAN] - 1-2 days
--- NOTE | 2018-07-19 03:09 | XR ---
EXAM: XR Chest, 2 Views CLINICAL HISTORY: ITS.REASON XR Reason: Pain TECHNIQUE: Frontal and lateral views of the chest. COMPARISON: 08/18/2016 chest x-ray FINDINGS: Lungs: No consolidation or mass. Pleural space: No effusion. Heart: No cardiomegaly. Mediastinum: Unremarkable. Bones/joints: No acute findings. IMPRESSION: No acute cardiopulmonary process.
[2018-07-19 04:21] VITALS: BP 115/73; PULSE 66; RESP 20; TEMP 98
== END 2018-07-19 04:20 | disposition home or self-care (01) ==
LOC: EC 01:52
DX: J10.1 Influenza due to other identified influenza virus with other respiratory manifestations (principal); F17.200 Nicotine dependence, unspecified, uncomplicated; Z87.09 Personal history of other diseases of the respiratory system; Z91.041 Radiographic dye allergy status
CPT/HCPCS: 71046; 87502; 94640; 96372; 99284

== ENCOUNTER 2018-10-01 21:31 | Emergency (ER) | payer OTHER ==
[2018-10-01 21:37] VITALS: RESP 18; TEMP 98.1
[2018-10-01] MEDS ORDERED: SODIUM CHLORIDE 0.9% 500 ML IV STA (22:10)
--- NOTE | 2018-10-01 22:15 | ED ---
General Adult HPI - General Chief complaint: Abdominal Pain Stated complaint: Abd Pain- Time Seen by Provider: 10/01/18 21:54 Source: patient Mode of arrival: ambulatory Limitations: no limitations - History of Present Illness Initial comments: Dictation was produced using [employer] dictation software. please excuse any grammatical, word or spelling errors. Chief Complaint: 28-year-old female presents with concerns of History of Present Illness: 28-year-old female she presents with 1 day of suprapubic cramping. She found out 2 weeks ago that she is approximately 13 weeks . Patient has not had obstetrical care for this yet. She has not been taking vitamins. Patient continues to smoke marijuana and cigarettes. Today she reports that she feels like the patient is not mo ving. She has been having some pain discharge. The ROS documented in this emergency department record has been reviewed and confirmed by me. Those systems with pertinent positive or negative responses have been documented in the HPI. All other systems are other negative and/or noncontributory. PHYSICAL EXAM: General Impression: Alert and oriented x3, not in acute distress HEENT: Normocephalic atraumatic, extra-ocular movements intact, pupils equal and reactive to light bilaterally, mucous membranes moist. Cardiovascular: Heart regular rate and rhythm, S1&S2 audible, no murmurs, rubs or gallops Chest: Lungs clear to auscultation bilaterally, no rhonchi, no wheeze, no rales Abdomen: Bowel sounds present, abdomen soft, non-tender, non-distended, no organomegaly Musculoskeletal: Pulses present and equal in all extremities, no peripheral edema Motor: no focal deficits noted Neurological: CN II-XII grossly intact, no focal motor or sensory deficits noted Skin: Intact with no visualized rashes Psych: Normal affect and mood Patient refusing pelvic exam. ED course: 28-year-old female who is allegedly 18 weeks based on last menstrual period. She presents today with suprapubic pain, cramping and vaginal discharge. Vital signs upon arrival shows heart rate of 121, blood pressure 95/59, worse vital signs within acceptable limits. Laboratory evaluation obtained mild leukocytosis of 11.2 likely secondary to . Metabolic panel is unremarkable. Beta Quant is 6192. Urinalysis does not suggest urinary tract infection. Pending urine culture. The ultrasound was obtained showing heart rate of 161. Patient's dates are measuring 18 weeks and 5 days with a estimated due date of February 27. - Related Data Previous Rx's Medication Instructions Recorded Jme-Duya-Fliix Acid 1 cap PO DAILY #30 cap 10/02/18 [-U Capsule (formulary)] Allergies Allergy/AdvReac Type Severity Reaction Status Date / Time Iodinated Contrast- Oral and Allergy BURNING Verified 10/01/18 22:11 IV Dye FROM THE INSIDE/ITCHING Review of Systems ROS Statement: Those systems with pertinent positive or pertinent negative responses have been documented in the HPI. ROS Other: All systems not noted in ROS Statement are negative. Past Medical History Past Medical History: Asthma, COPD Additional Past Medical History / Comment(s): concussions, bronchitis History of Any Multi-Drug Resistant Organisms: None Reported Additional Past Surgical History / Comment(s): D & C x2 Past Anesthesia/Blood Transfusion Reactions: No Reported Reaction Past Psychological History: Anxiety, Bipolar, Depression Smoking Status: Current every day smoker Past Alcohol Use History: None Reported Past Drug Use History: Marijuana - Past Family History Mother Family Medical History: Respiratory Disorder General Exam Limitations: no limitations Course Vital Signs 10/01/18 10/01/18 21:32 23:05 Temperature 98.1 F Pulse Rate 121 H 87 Respiratory 18 18 Rate Blood Pressure 95/59 104/47 O2 Sat by Pulse 97 100 Oximetry Medical Decision Making - Lab Data Result diagrams: 10/01/18 22:31 10/01/18 22:31 Lab Results 10/01/18 10/01/18 10/01/18 Range/Units 22:31 22:31 22:31 WBC 11.2 H (3.8-10.6) k/uL RBC 4.70 (3.80-5.40) m/uL Hgb 12.2 (11.4-16.0) gm/dL Hct 37.5 (34.0-46.0) % MCV 79.8 L (80.0-100.0) fL MCH 25.9 (25.0-35.0) pg MCHC 32.5 (31.0-37.0) g/dL RDW 15.7 H (11.5-15.5) % Plt Count 245 (150-450) k/uL Neutrophils % 70 % Lymphocytes % 21 % Monocytes % 4 % Eosinophils % 3 % Basophils % 0 % Neutrophils # 7.8 H (1.3-7.7) k/uL Lymphocytes # 2.3 (1.0-4.8) k/uL Monocytes # 0.5 (0-1.0) k/uL Eosinophils # 0.4 (0-0.7) k/uL Basophils # 0.1 (0-0.2) k/uL Sodium 137 (137-145) mmol/L Potassium 3.9 (3.5-5.1) mmol/L Chloride 107 (98-107) mmol/L Carbon Dioxide 22 (22-30) mmol/L Anion Gap 8 mmol/L BUN 7 (7-17) mg/dL Creatinine 0.61 (0.52-1.04) mg/dL Est GFR (CKD-EPI)AfAm >90 (>60 ml/min/1.73 sqM) Est GFR (CKD-EPI)NonAf >90 (>60 ml/min/1.73 sqM) Glucose 82 (74-99) mg/dL Calcium 9.5 (8.4-10.2) mg/dL Total Bilirubin <0.1 L (0.2-1.3) mg/dL AST 13 L (14-36) U/L ALT <6 L (9-52) U/L Alkaline Phosphatase 53 (38-126) U/L Total Protein 6.2 L (6.3-8.2) g/dL Albumin 3.5 (3.5-5.0) g/dL Lipase 112 (23-300) U/L HCG, Quant 6192.4 mIU/mL Urine Color Urine Appearance (Clear) Urine pH (5.0-8.0) Ur Specific [place] (1.001-1.035) Urine Protein (Negative) Urine Glucose (UA) (Negative) Urine Ketones (Negative) Urine Blood (Negative) Urine Nitrite (Negative) Urine Bilirubin (Negative) Urine Urobilinogen (<2.0) mg/dL Ur Leukocyte Esterase (Negative) Urine RBC (0-5) /hpf Urine WBC (0-5) /hpf Ur Squamous Epith Cells (0-4) /hpf Calcium Oxalate Crystal (None) /hpf Urine Bacteria (None) /hpf Urine Mucus (None) /hpf Blood Type O Positive Blood Type Recheck No Antibody Screen NEGATIVE Spec Expiration Date 10/04/2018233010/01/18 Range/Units 22:31 WBC (3.8-10.6) k/uL RBC (3.80-5.40) m/uL Hgb (11.4-16.0) gm/dL Hct (34.0-46.0) % MCV (80.0-100.0) fL MCH (25.0-35.0) pg MCHC (31.0-37.0) g/dL RDW (11.5-15.5) % Plt Count (150-450) k/uL Neutrophils % % Lymphocytes % % Monocytes % % Eosinophils % % Basophils % % Neutrophils # (1.3-7.7) k/uL Lymphocytes # (1.0-4.8) k/uL Monocytes # (0-1.0) k/uL Eosinophils # (0-0.7) k/uL Basophils # (0-0.2) k/uL Sodium (137-145) mmol/L Potassium (3.5-5.1) mmol/L Chloride (98-107) mmol/L Carbon Dioxide (22-30) mmol/L Anion Gap mmol/L BUN (7-17) mg/dL Creatinine (0.52-1.04) mg/dL Est GFR (CKD-EPI)AfAm (>60 ml/min/1.73 sqM) Est GFR (CKD-EPI)NonAf (>60 ml/min/1.73 sqM) Glucose (74-99) mg/dL Calcium (8.4-10.2) mg/dL Total Bilirubin (0.2-1.3) mg/dL AST (14-36) U/L ALT (9-52) U/L Alkaline Phosphatase (38-126) U/L Total Protein (6.3-8.2) g/dL Albumin (3.5-5.0) g/dL Lipase (23-300) U/L HCG, Quant mIU/mL Urine Color Yellow Urine Appearance Cloudy H (Clear) Urine pH 6.0 (5.0-8.0) Ur Specific [place] 1.038 H (1.001-1.035) Urine Protein 1+ H (Negative) Urine Glucose (UA) Negative (Negative) Urine Ketones Trace H (Negative) Urine Blood Negative (Negative) Urine Nitrite Negative (Negative) Urine Bilirubin Negative (Negative) Urine Urobilinogen 2.0 (<2.0) mg/dL Ur Leukocyte Esterase Small H (Negative) Urine RBC 1 (0-5) /hpf Urine WBC 1 (0-5) /hpf Ur Squamous Epith Cells 14 H (0-4) /hpf Calcium Oxalate Crystal Many H (None) /hpf Urine Bacteria Rare H (None) /hpf Urine Mucus Many H (None) /hpf Blood Type Blood Type Recheck Antibody Screen Spec Expiration Date Disposition Clinical Impression: Threatened Disposition: HOME SELF-CARE Condition: Good Prescriptions: Rnd-Luqb-Hlhdn Acid [-U Capsule (formulary)] 1 cap PO DAILY #30 cap Is patient prescribed a controlled substance at d/c from ED?: No Referrals: Nelson Barrett MD [STAFF PHYSICIAN] - 1-2 days Time of Disposition: 00:29
[2018-10-01 22:49] LABS: Basophils # (A) 0.1 k/uL (0-0.2); Basophils % (A) 0 %; Eosinophils # (A) 0.4 k/uL (0-0.7); Eosinophils % (A) 3 %; HCT 37.5 % (34.0-46.0); HGB 12.2 gm/dL (11.4-16.0); Lymphocytes # (A) 2.3 k/uL (1.0-4.8); Lymphocytes % (A) 21 %; MCH 25.9 pg (25.0-35.0); MCHC 32.5 g/dL (31.0-37.0); MCV 79.8 fL (80.0-100.0); Mean Platelet Volume 6.6; Monocytes # (A) 0.5 k/uL (0-1.0); Monocytes % (A) 4 %; Neutrophils # (A) 7.8 k/uL (1.3-7.7); Neutrophils % (A) 70 %; Platelet Count 245 k/uL (150-450); RDW 15.7 % (11.5-15.5); WBC 11.2 k/uL (3.8-10.6)
[2018-10-01 22:53] LABS: ALT <6 U/L (9-52); AST 13 U/L (14-36); Albumin 3.5 g/dL (3.5-5.0); Alkaline Phosphatase 53 U/L (38-126); Anion Gap 8 mmol/L; Blood Urea Nitrogen 7 mg/dL (7-17); Calcium 9.5 mg/dL (8.4-10.2); Carbon Dioxide 22 mmol/L (22-30); Chloride 107 mmol/L (98-107); Glucose 82 mg/dL (74-99); Lipase 112 U/L (23-300); Potassium 3.9 mmol/L (3.5-5.1); Sodium 137 mmol/L (137-145); Total Bilirubin <0.1 mg/dL (0.2-1.3); Total Protein 6.2 g/dL (6.3-8.2)
[2018-10-01 23:07] VITALS: BP 104/47; PULSE 87
[2018-10-01 23:08] LABS: HCG,Quantitative Serum 6192.4 mIU/mL
[2018-10-01 23:12] LABS: Appearance,Urine Cloudy (Clear); Bacteria,Urine Rare /hpf; Bilirubin,Urine Negative (Negative); Blood,Urine Negative (Negative); Calcium Oxalate Crystals,Urine Many /hpf; Color,Urine Yellow; Glucose,Urine (UA) Negative (Negative); Ketones,Urine Trace (Negative); Leukocyte Esterase,Urine Small (Negative); Mucus,Urine Many /hpf; Nitrite,Urine Negative (Negative); Protein,Urine 1+ (Negative); RBC,Urine 1 /hpf (0-5); Specific Gravity,Urine 1.038 (1.001-1.035); Squamous Epithelial Cell,Urine 14 /hpf (0-4); WBC,Urine 1 /hpf (0-5)
--- NOTE | 2018-10-02 00:18 | US ---
EXAM: US After First Trimester, Transabdominal CLINICAL HISTORY: ITS.REASON US Reason: Pain TECHNIQUE: Real-time transabdominal obstetrical ultrasound of the maternal pelvis and a second or third trimester with image documentation. COMPARISON: No relevant prior studies available. FINDINGS: Fetus: Single live intrauterine with fetus in breech position. Heart rate: cardiac activity with heart rate of 161 bpm. Presentation: Breech Placenta: Placenta identified posteriorly. No evidence of placenta previa. Amniotic fluid: [place] is 12.1 cm - within normal limits. Anatomy: Visualized anatomy appears grossly normal although anatomic evaluation limited by early gestational age. BIOMETRICS Gestational age: Composite ultrasound estimated gestational age is 18 weeks 5 days. KEN: Ultrasound Estimated due date 02/27/2019. EFW: Estimated weight 261.5 g plus or -39.2 g corresponding to 54.7 percentile. BPD: BPD 4.34 cm 19 weeks 1 day HC: Head circumference 15.62 cm 18 weeks 4 days AC: Abdominal circumference 12.99 cm 18 weeks 4 days FL: Femur length 3.01 cm 19 weeks 2 days Cervix: Cervix measures 3.6 cm. IMPRESSION: Single live intrauterine with composite ultrasound estimated gestational age of 18 weeks 5 days corresponding to estimated due date of 02/27/2019.
== END 2018-10-02 00:40 | disposition home or self-care (01) ==
LOC: EC 21:31
DX: O20.0 Threatened abortion (principal); O99.332 Smoking (tobacco) complicating pregnancy, second trimester; F17.210 Nicotine dependence, cigarettes, uncomplicated; Z3A.18 18 weeks gestation of pregnancy; Z91.041 Radiographic dye allergy status
CPT/HCPCS: 36415; 76805; 80053; 81001; 83690; 84702; 85025; 86850; 86900; 86901; 87086; 96360; 96361; 99284

== ENCOUNTER → 2019-02-01 | Outpatient (CLI) | payer OTHER ==
--- NOTE | 2019-02-01 12:03 | US ---
EXAMINATION TYPE: US OB >= 14 wk fetus DATE OF EXAM: 02/01/2019 COMPARISON: None CLINICAL HISTORY: Z34.90 Encounter for supervision of normalFor Growth TECHNIQUE: Transabdominal (TA) GESTATIONAL AGE / DATING Physician Established: (37 weeks/2 days) EDC: 02/20/2019 Dates by LMP: Unknown Dates by First Scan: (36 weeks/1 days) EDC: 02/27/2019 Dates by Current Scan: (36 weeks/0 days) EDC: 03/01/2019 SURVEY IUP: Single PLACENTA: Fundal PREVIA: No Previa [place]: 12.7 cm Normal CERVICAL LENGTH (transabdominal: norm > 3.0cm): 3.7 cm BIOMETRY PRESENTATION: Vertex BPD: 8.8 cm 35 weeks / 5 days HC: 32.5 cm 36 weeks / 6 days AC: 31.9 cm 35 weeks / 6 days FL: 6.9 cm 35 weeks / 3 days ESTIMATED WEIGHT IN GRAMS: 2773 grams ESTIMATED WEIGHT IN LBS/OZ: 6 lbs. 2 oz. WEIGHT PERCENTAGE BASED ON ESTABLISHED DATES: 21.1% HC/AC: 1.02 Normal FL/AC: 22 Normal HEART RATE: 139 bpm RHYTHM: Normal Single, live IUP/ Growth in 21st percentile IMPRESSION: Single live intrauterine with a sonographic age of 36 weeks and 0 days and estimated date o f delivery of 03/01/2019, slightly discordant with menstrual age although less reliable given the late dates. Growth is noted to be in the 21st percentile.
== END | disposition home or self-care (01) ==
LOC: RADUSWWP 10:41
PROVIDERS: ATTEND Obstetrics & Gynecology
DX: Z34.93 Encounter for supervision of normal pregnancy, unspecified, third trimester (principal)
CPT/HCPCS: 76805

== ENCOUNTER 2019-04-08 13:57 | Emergency (ER) | payer OTHER ==
[2019-04-08 14:07] VITALS: TEMP 97.8
[2019-04-08 15:39] LABS: Appearance,Urine Cloudy (Clear); Bilirubin,Urine Negative (Negative); Blood,Urine Negative (Negative); Color,Urine Yellow; Glucose,Urine (UA) Negative (Negative); Ketones,Urine Negative (Negative); Leukocyte Esterase,Urine Large (Negative); Mucus,Urine Rare /hpf; Nitrite,Urine Negative (Negative); Protein,Urine Negative (Negative); RBC,Urine 2 /hpf (0-5); Specific Gravity,Urine 1.014 (1.001-1.035); Squamous Epithelial Cell,Urine 14 /hpf (0-4); Urobilinogen,Urine <2.0 mg/dL (<2.0); WBC,Urine 5 /hpf (0-5)
[2019-04-08] MEDS ORDERED: cefTRIAXone 250 MG VIAL IM STA (15:47)
[2019-04-08] MEDS ORDERED: AZITHROMYCIN 500 MG TAB PO STA (15:47)
--- NOTE | 2019-04-08 16:29 | ED ---
General Adult HPI - General Chief complaint: Abdominal Pain Stated complaint: Pelvic Pain, Discharge Time Seen by Provider: 04/08/19 14:31 Source: patient, RN notes reviewed Mode of arrival: ambulatory Limitations: no limitations - History of Present Illness Initial comments: 28-year-old female with a past medical history of concussions, bronchitis, ast hma, COPD presents to the emergency department for a chief complaint of vaginal discharge. States this has been ongoing for the past about 5 days. States she had unprotected intercourse at that time before it started. States she has had some mild vaginal and pelvic discomfort but otherwise has felt well. Admits to mild dysuria. Denies fevers or chills.Patient has no other complaints at this t naseem including shortness of breath, chest pain, abdominal pain, nausea or vomiting, headache, or visual changes. - Related Data Previous Rx's Medication Instructions Recorded Fju-Bnlu-Tafrq Acid 1 cap PO DAILY #30 cap 10/02/18 [-U Capsule (formulary)] Doxycycline [Vibramycin] 100 mg PO BID 14 Days #28 capsule 04/08/19 Allergies Allergy/AdvReac Type Severity Reaction Status Date / Time Iodinated Contrast Media Allergy BURNING Verified 10/01/18 22:11 FROM THE INSIDE/ITCHING Review of Systems ROS Statement: Those systems with pertinent positive or pertinent negative responses have been documented in the HPI. ROS Other: All systems not noted in ROS Statement are negative. Past Medical History Past Medical History: Asthma, COPD Additional Past Medical History / Comment(s): concussions, bronchitis History of Any Multi-Drug Resistant Organisms: None Reported Additional Past Surgical History / Comment(s): D & C x2 Past Anesthesia/Blood Transfusion Reactions: No Reported Reaction Past Psychological History: Anxiety, Bipolar, Depression, PTSD Smoking Status: Current every day smoker Past Alcohol Use History: None Reported Past Drug Use History: Marijuana - Past Family History Mother Family Medical History: Respiratory Disorder General Exam Limitations: no limitations General appearance: alert, in no apparent distress Head exam: Present: atraumatic, normocephalic, normal inspection Eye exam: Present: normal appearance, PERRL, EOMI. Absent: scleral icterus, conjunctival injection, periorbital swelling ENT exam: Present: normal exam, mucous membranes moist Neck exam: Present: normal inspection, full ROM. Absent: tenderness, meningismus, lymphadenopathy Respiratory exam: Present: normal lung sounds bilaterally. Absent: respiratory distress, wheezes, rales, rhonchi, stridor Cardiovascular Exam: Present: regular rate, normal rhythm, normal heart sounds. Absent: systolic murmur, diastolic murmur, rubs, gallop, clicks GI/Abdominal exam: Present: soft, normal bowel sounds. Absent: distended, tenderness, guarding, rebound, rigid External exam: Present: normal external exam. Absent: erythema, swelling, lesions, lacerations, ecchymosis Speculum exam: Present: vaginal discharge (Whitish, possibly normal). Absent: erythema, cervical discharge, vaginal bleeding, foreign body, tissue By manual exam: Present: normal by manual exam. Absent: cervical motion tenderness, adnexal tenderness, adnexal mass, uterine enlargement, uterine tenderness Course Vital Signs 04/08/19 14:04 Temperature 97.8 F Pulse Rate 67 Respiratory 19 Rate Blood Pressure 133/85 O2 Sat by Pulse 99 Oximetry Medical Decision Making - Medical Decision Making Pelvic exam generally unremarkable. No abdominal tenderness. Urinalysis unremarkable, no evidence for infection, cultures pending. Urinalysis is negative. Gonorrhea and chlamydia pending. Patient does want empiric treatment was treated with Rocephin and azithromycin. I discussed using doxycycline and patient prefers to use this until she gets the culture results back. However no significant concern for pelvic and platelet her disease at this time. Patient will follow up with primary care. She'll return here she is a worsening symptoms. - Lab Data Lab Results 04/08/19 04/08/19 04/08/19 Range/Units 15:15 15:27 15:27 Urine Color Yellow Urine Appearance Cloudy H (Clear) Urine pH 6.0 (5.0-8.0) Ur Specific [place] 1.014 (1.001-1.035) Urine Protein Negative (Negative) Urine Glucose (UA) Negative (Negative) Urine Ketones Negative (Negative) Urine Blood Negative (Negative) Urine Nitrite Negative (Negative) Urine Bilirubin Negative (Negative) Urine Urobilinogen <2.0 (<2.0) mg/dL Ur Leukocyte Esterase Large H (Negative) Urine RBC 2 (0-5) /hpf Urine WBC 5 (0-5) /hpf Ur Squamous Epith Cells 14 H (0-4) /hpf Urine Mucus Rare H (None) /hpf Urine HCG, Qual Not Detected (Not Detectd) Trichomonas Ag (Rapid) Negative (Negative) Disposition Clinical Impression: Vaginal discharge Disposition: HOME SELF-CARE Condition: Good Instructions (If sedation given, give patient instructions): Vaginal Discharge (ED) Additional Instructions: Please take antibiotic as directed. Please follow-up with primary care in 1-2 days. Return to the emergency department if you have any worsening symptoms such as worsening pain or fevers. Follow up on culture results in 2 days. Prescriptions: Doxycycline [Vibramycin] 100 mg PO BID 14 Days #28 capsule Is patient prescribed a controlled substance at d/c from ED?: No Referrals: Moira Mansfield MD [Primary Care Provider] - 1-2 days Time of Disposition: 16:27
[2019-04-08 16:59] VITALS: BP 130/80; PULSE 65; RESP 18
[2019-04-09 15:53] LABS: C. trachomatis,PCR Negative (Neg,Equiv); Chlamydia trachomatis Source Vagina; N. gonorrhoeae,PCR Negative (Neg,Equiv); Neisseria Source Vagina
== END 2019-04-08 16:58 | disposition home or self-care (01) ==
LOC: EC 13:57
DX: N89.8 Other specified noninflammatory disorders of vagina (principal); F17.200 Nicotine dependence, unspecified, uncomplicated; Z91.041 Radiographic dye allergy status
CPT/HCPCS: 81001; 81025; 87808; 87491; 87591; 87070; 99284; 96372; J0696

== ENCOUNTER → 2019-06-25 | Outpatient (CLI) | payer OTHER ==
--- NOTE | 2019-06-25 14:46 | XR ---
Lumbosacral spine HISTORY: Low back pain 5 views of the lumbosacral spine, correlation prior exam 01/01/2014 There is a mild levoscoliosis centered at L4-5. Lumbar vertebral bodies show preserved height and bon e mineralization. No evident spondylolysis or spondylolisthesis. Disc spaces are maintained. IMPRESSION: Spinal curvature.
== END | disposition home or self-care (01) ==
LOC: RAD 14:23
PROVIDERS: ATTEND Family Medicine
DX: M43.8X7 Other specified deforming dorsopathies, lumbosacral region (principal); M54.41 Lumbago with sciatica, right side; G89.29 Other chronic pain; Z86.69 Personal history of other diseases of the nervous system and sense organs
CPT/HCPCS: 72110

== ENCOUNTER 2019-10-28 11:18 | Emergency (ER) | payer OTHER ==
[2019-10-28 11:30] VITALS: BP 121/78; PULSE 81; RESP 18; TEMP 98.3
[2019-10-28] MEDS ORDERED: HYDROcodone/APAP 7.5-325MG 1 EACH TAB PO ONE (12:00)
--- NOTE | 2019-10-28 12:03 | ED ---
Lower Extremity Injury HPI - General Chief Complaint: Extremity Injury, Lower Stated Complaint: fall, rt ankle/foot injury Time Seen by Provider: 10/28/19 11:58 Source: patient, RN notes reviewed Mode of arrival: wheelchair Limitations: physical limitation - History of Present Illness Initial Comments: 29-year-old female presents emergency Department chief complaint of right ankle injury. Patient states she missed a step and states that she rolled her ankle. Denies any paresthesias. Patient states that his pain on lateral portion of her right ankle. She has had prior right foot fractures denies any proximal leg pain. Patient offers no other complaints. - Related Data Previous Rx's Medication Instructions Recorded Zsi-Xssp-Irhln Acid 1 cap PO DAILY #30 cap 10/02/18 [-U Capsule (formulary)] Doxycycline [Vibramycin] 100 mg PO BID 14 Days #28 capsule 04/08/19 Allergies Allergy/AdvReac Type Severity Reaction Status Date / Time Iodinated Contrast Media Allergy BURNING Verified 10/28/19 11:31 FROM THE INSIDE/ITCHING Review of Systems ROS Statement: Those systems with pertinent positive or pertinent negative responses have been documented in the HPI. ROS Other: All systems not noted in ROS Statement are negative. Past Medical History Past Medical History: Asthma, COPD Additional Past Medical History / Comment(s): concussions, bronchitis History of Any Multi-Drug Resistant Organisms: None Reported Additional Past Surgical History / Comment(s): D & C x2 Past Anesthesia/Blood Transfusion Reactions: No Reported Reaction Past Psychological History: Anxiety, Bipolar, Depression, PTSD Smoking Status: Current every day smoker Past Alcohol Use History: Occasional Past Drug Use History: Marijuana - Past Family History Mother Family Medical History: Respiratory Disorder General Exam Limitations: physical limitation General appearance: alert, in no apparent distress Head exam: Present: atraumatic, normocephalic, normal inspection Respiratory exam: Present: normal lung sounds bilaterally. Absent: respiratory distress, wheezes, rales, rhonchi, stridor Cardiovascular Exam: Present: regular rate, normal rhythm, normal heart sounds. Absent: systolic murmur, diastolic murmur, rubs, gallop, clicks Extremities exam: Present: other (Right ankle there is moderate swelling, tenderness the lateral portion and lateral malleolar region no distal foot tenderness no proximal tib-fib tenderness neurovascular intact) Neurological exam: Present: reflexes normal. Absent: motor sensory deficit Skin exam: Present: warm, dry, intact, normal color. Absent: rash Course Vital Signs 10/28/19 11:26 Temperature 98.3 F Pulse Rate 81 Respiratory 18 Rate Blood Pressure 121/78 O2 Sat by Pulse 99 Oximetry Medical Decision Making - Medical Decision Making X-rays are negative for acute fracture issues right ankle sprain we discharged follow-up with orthopedics return parameters were discussed. Disposition Clinical Impression: Right ankle sprain Disposition: HOME SELF-CARE Condition: Stable Instructions (If sedation given, give patient instructions): Ankle Sprain (ED) Additional Instructions: Please return to the Emergency Department if symptoms worsen or any other concerns. Is patient prescribed a controlled substance at d/c from ED?: No Referrals: Moira Mansfield MD [Primary Care Provider] - 1-2 days John David MD [Medical Doctor] - 1-2 days Time of Disposition: 12:44
--- NOTE | 2019-10-28 12:38 | XR ---
EXAMINATION TYPE: XR ankle complete RT DATE OF EXAM: 10/28/2019 COMPARISON: NONE HISTORY: Pain FINDINGS: Three views of the ankle demonstrate the ankle mortise to be intact and symmetric. The joint spaces are preserved. The osseous structures are intact. IMPRESSION: 1. No definite acute fracture or dislocation, if symptoms persist follow-up study in 7 to 10 days wou ld be suggested.
[2019-10-28] MEDS ORDERED: ACET/COD 300 MG/30 MG STARTER PACK 6 TAB BTL PO STA (12:42)
== END 2019-10-28 12:57 | disposition home or self-care (01) ==
LOC: EC 11:18
DX: S93.401A Sprain of unspecified ligament of right ankle, initial encounter (principal); F17.200 Nicotine dependence, unspecified, uncomplicated; Z91.041 Radiographic dye allergy status; W10.9XXA Fall (on) (from) unspecified stairs and steps, initial encounter; Y93.89 Activity, other specified; Y92.009 Unspecified place in unspecified non-institutional (private) residence as the place of occurrence of the external cause
CPT/HCPCS: 73610; 99283; 29515; L4350

== ENCOUNTER 2020-09-11 14:27 | Emergency (ER) | payer OTHER ==
[2020-09-11 14:34] VITALS: BP 116/64; PULSE 74; RESP 16; TEMP 97.9
--- NOTE | 2020-09-11 14:57 | ED ---
Extremity Problem HPI - General Chief complaint: Extremity Problem,Nontraumatic Stated complaint: L leg pain, legs swelling Time Seen by Provider: 09/11/20 14:46 Source: patient, RN notes reviewed Mode of arrival: ambulatory Limitations: no limitations - History of Present Illness Initial comments: Patient is a 29-year-old female that presents to the emergency department complaining of bilateral lower extremity swelling with some pain in her left leg. She notes that this is been going on for the last several days but is never happened this bad before. She notes that she's recently gained a significant amount of weight without and tension. She notes that she's been try to drink more water and feels like she is retaining fluid. Notes that her family does have a positive history for heart failure and other cardiac issues. She notes that she does have COPD and chronic bronchitis from smoking. She states that the pain is approximate 7-8 out of 10 with no relief from any at home remedies. She denied any aggravating or alleviating factors at this time. She was in no apparent distress or pain while sitting up in bed during the exam and interview. She denied any chest pain headache nausea vomiting diarrhea constipation fever fatigue chills. - Related Data Home Medications Medication Instructions Recorded Confirmed Acetaminophen Tab [Tylenol Tab] 1,000 mg PO Q6HR PRN 09/11/20 09/11/20 Gabapentin [Neurontin] 300 mg PO TID 09/11/20 09/11/20 Ibuprofen 600 mg PO Q6H PRN 09/11/20 09/11/20 busPIRone HCL 15 mg PO TID 09/11/20 09/11/20 Allergies Allergy/AdvReac Type Severity Reaction Status Date / Time Iodinated Contrast Media Allergy BURNING Verified 09/11/20 15:45 FROM THE INSIDE/ITCHING Review of Systems ROS Statement: Those systems with pertinent positive or pertinent negative responses have been documented in the HPI. ROS Other: All systems not noted in ROS Statement are negative. Past Medical History Past Medical History: Asthma, COPD Additional Past Medical History / Comment(s): concussions, bronchitis History of Any Multi-Drug Resistant Organisms: None Reported Additional Past Surgical History / Comment(s): D & C x2 Past Anesthesia/Blood Transfusion Reactions: No Reported Reaction Past Psychological History: Anxiety, Bipolar, Depression, PTSD Smoking Status: Current every day smoker Past Alcohol Use History: Occasional Past Drug Use History: Marijuana - Past Family History Mother Family Medical History: Respiratory Disorder General Exam Limitations: no limitations General appearance: alert, in no apparent distress, obese Head exam: Present: atraumatic, normocephalic, normal inspection Eye exam: Present: normal appearance, PERRL, EOMI. Absent: scleral icterus, conjunctival injection, periorbital swelling Neck exam: Present: normal inspection Respiratory exam: Present: wheezes (Bilaterally in all mathias). Absent: respiratory distress, rales, rhonchi, stridor Cardiovascular Exam: Present: regular rate, normal rhythm, normal heart sounds. Absent: systolic murmur, diastolic murmur, rubs, gallop, clicks GI/Abdominal exam: Present: soft, normal bowel sounds. Absent: distended, tenderness, guarding, rebound, rigid Extremities exam: Present: normal inspection, full ROM, normal capillary refill, pedal edema (1+), other (Pulses 2+ bilaterally). Absent: tenderness, joint swelling, calf tenderness Neurological exam: Present: alert, oriented X3, CN II-XII intact Psychiatric exam: Present: normal affect, normal mood Skin exam: Present: warm, dry, intact, normal color. Absent: rash Course Vital Signs 09/11/20 14:29 Temperature 97.9 F Pulse Rate 74 Respiratory 16 Rate Blood Pressure 116/64 O2 Sat by Pulse 100 Oximetry Medical Decision Making - Medical Decision Making 29-year-old female complaining of bilateral lower extremity swelling. Labs, bilateral ultrasound, chest x-ray, 1 L normal saline, EKG, youth nutritional monitor ordered. Labs unremarkable. Ultrasound negative for any DVTs. Case discussed with Dr. Oleary, patient can discharge home with follow-up to primary care. - Lab Data Result diagrams: 09/11/20 15:27 09/11/20 15:27 Lab Results 09/11/20 09/11/20 09/11/20 Range/Units 15:27 15:27 15:27 WBC 7.5 (3.8-10.6) k/uL RBC 4.90 (3.80-5.40) m/uL Hgb 12.9 (11.4-16.0) gm/dL Hct 39.5 (34.0-46.0) % MCV 80.7 (80.0-100.0) fL MCH 26.3 (25.0-35.0) pg MCHC 32.5 (31.0-37.0) g/dL RDW 14.2 (11.5-15.5) % Plt Count 263 (150-450) k/uL MPV 6.5 Neutrophils % 64 % Lymphocytes % 25 % Monocytes % 5 % Eosinophils % 4 % Basophils % 1 % Neutrophils # 4.8 (1.3-7.7) k/uL Lymphocytes # 1.9 (1.0-4.8) k/uL Monocytes # 0.4 (0-1.0) k/uL Eosinophils # 0.3 (0-0.7) k/uL Basophils # 0.0 (0-0.2) k/uL PT 10.2 (9.0-12.0) sec INR 0.9 (<1.2) APTT 25.4 (22.0-30.0) sec Sodium 139 (137-145) mmol/L Potassium 4.3 (3.5-5.1) mmol/L Chloride 106 (98-107) mmol/L Carbon Dioxide 27 (22-30) mmol/L Anion Gap 6 mmol/L BUN 18 H (7-17) mg/dL Creatinine 0.80 (0.52-1.04) mg/dL Est GFR (CKD-EPI)AfAm >90 (>60 ml/min/1.73 sqM) Est GFR (CKD-EPI)NonAf >90 (>60 ml/min/1.73 sqM) Glucose 84 (74-99) mg/dL Plasma Lactic Acid Perry (0.7-2.0) mmol/L Calcium 8.9 (8.4-10.2) mg/dL Total Bilirubin 0.2 (0.2-1.3) mg/dL AST 23 (14-36) U/L ALT 18 (4-34) U/L Alkaline Phosphatase 71 (38-126) U/L NT-Pro-B Natriuret Pep pg/mL Total Protein 6.0 L (6.3-8.2) g/dL Albumin 3.5 (3.5-5.0) g/dL 09/11/20 09/11/20 Range/Units 15:27 15:27 WBC (3.8-10.6) k/uL RBC (3.80-5.40) m/uL Hgb (11.4-16.0) gm/dL Hct (34.0-46.0) % MCV (80.0-100.0) fL MCH (25.0-35.0) pg MCHC (31.0-37.0) g/dL RDW (11.5-15.5) % Plt Count (150-450) k/uL MPV Neutrophils % % Lymphocytes % % Monocytes % % Eosinophils % % Basophils % % Neutrophils # (1.3-7.7) k/uL Lymphocytes # (1.0-4.8) k/uL Monocytes # (0-1.0) k/uL Eosinophils # (0-0.7) k/uL Basophils # (0-0.2) k/uL PT (9.0-12.0) sec INR (<1.2) APTT (22.0-30.0) sec Sodium (137-145) mmol/L Potassium (3.5-5.1) mmol/L Chloride (98-107) mmol/L Carbon Dioxide (22-30) mmol/L Anion Gap mmol/L BUN (7-17) mg/dL Creatinine (0.52-1.04) mg/dL Est GFR (CKD-EPI)AfAm (>60 ml/min/1.73 sqM) Est GFR (CKD-EPI)NonAf (>60 ml/min/1.73 sqM) Glucose (74-99) mg/dL Plasma Lactic Acid Perry 0.5 L (0.7-2.0) mmol/L Calcium (8.4-10.2) mg/dL Total Bilirubin (0.2-1.3) mg/dL AST (14-36) U/L ALT (4-34) U/L Alkaline Phosphatase (38-126) U/L NT-Pro-B Natriuret Pep 174 pg/mL Total Protein (6.3-8.2) g/dL Albumin (3.5-5.0) g/dL - EKG Data -: EKG Interpreted by Me EKG shows normal: sinus rhythm Rate: normal EKG Comments: Ventricular rate 73 days per minute, NE interval 154 ms, QRS duration 90 ms, QT/QTC 386/425 ms, PRT axes 39/47/21. Normal sinus rhythm, normal ECG. - Radiology Data Radiology results: report reviewed, image reviewed Bilateral ultrasound of the lower extremities: Negative for DVT. Chest x-ray: Lower lobe increased lung markings could be slight increased pulmonary vascularity. No pulmonary consolidation or heart failure. Disposition Clinical Impression: Bilateral lower extremity edema Disposition: HOME SELF-CARE Condition: Stable Instructions (If sedation given, give patient instructions): Leg Edema (ED) Additional Instructions: Please return to the Emergency Department if symptoms worsen or any other concerns. Follow-up with primary care in 3-5 days. Limits alt intake as it can cause water retention. Is patient prescribed a controlled substance at d/c from ED?: No Referrals: Moira Mansfield MD [Primary Care Provider] - 1-2 days Time of Disposition: 17:21
[2020-09-11 15:41] LABS: Basophils % (A) 1 %; Eosinophils # (A) 0.3 k/uL (0-0.7); Eosinophils % (A) 4 %; HCT 39.5 % (34.0-46.0); HGB 12.9 gm/dL (11.4-16.0); Lymphocytes # (A) 1.9 k/uL (1.0-4.8); Lymphocytes % (A) 25 %; MCH 26.3 pg (25.0-35.0); MCHC 32.5 g/dL (31.0-37.0); MCV 80.7 fL (80.0-100.0); Mean Platelet Volume 6.5; Monocytes # (A) 0.4 k/uL (0-1.0); Monocytes % (A) 5 %; Neutrophils # (A) 4.8 k/uL (1.3-7.7); Neutrophils % (A) 64 %; Platelet Count 263 k/uL (150-450); RDW 14.2 % (11.5-15.5); WBC 7.5 k/uL (3.8-10.6)
[2020-09-11 15:52] LABS: INR 0.9 (<1.2); Partial Thromboplastin Time 25.4 sec (22.0-30.0); Prothrombin Time 10.2 sec (9.0-12.0)
[2020-09-11 15:55] LABS: ALT 18 U/L (4-34); AST 23 U/L (14-36); African American GFR (CKD) >90 (>60 ml/min/1.73 sqM); Albumin 3.5 g/dL (3.5-5.0); Alkaline Phosphatase 71 U/L (38-126); Anion Gap 6 mmol/L; Blood Urea Nitrogen 18 mg/dL (7-17); Calcium 8.9 mg/dL (8.4-10.2); Carbon Dioxide 27 mmol/L (22-30); Chloride 106 mmol/L (98-107); Glucose 84 mg/dL (74-99); Non-African American GFR(CKD) >90 (>60 ml/min/1.73 sqM); Potassium 4.3 mmol/L (3.5-5.1); Sodium 139 mmol/L (137-145); Total Bilirubin 0.2 mg/dL (0.2-1.3)
--- NOTE | 2020-09-11 16:50 | US ---
EXAMINATION TYPE: US venous doppler duplex LE BI DATE OF EXAM: 09/11/2020 2:54 PM COMPARISON: NONE CLINICAL HISTORY: Bilateral lower extremities swelling. SIDE PERFORMED: Bilateral TECHNIQUE: The lower extremity deep venous system is examined utilizing real time linear array sonog ran with graded compression, doppler sonography and color-flow sonography. VESSELS IMAGED: Common Femoral Vein Deep Femoral Vein Greater Saphenous Vein * Femoral Vein Popliteal Vein Small Saphenous Vein * Proximal Calf Veins (* superficial vessels) Right Leg: Negative for DVT Left Leg: Negative for DVT IMPRESSION: No evidence of deep vein thrombosis in both legs.
--- NOTE | 2020-09-11 16:54 | XR ---
EXAMINATION TYPE: XR chest 2V DATE OF EXAM: 09/11/2020 COMPARISON: 07/19/2018 HISTORY: Difficulty breathing TECHNIQUE: 2 views FINDINGS: Heart and mediastinum are normal. Lungs are clear. Diaphragm is normal. Bony thorax is inta ct. There is slight increased lung markings in the lower lung mathias. IMPRESSION: Lower lobe increased lung markings could be slight increased pulmonary vascularity. No pu lmonary consolidation or heart failure.
== END 2020-09-11 17:33 | disposition home or self-care (01) ==
LOC: EC 14:27
DX: R60.0 Localized edema (principal); M79.662 Pain in left lower leg; M79.89 Other specified soft tissue disorders; J44.9 Chronic obstructive pulmonary disease, unspecified; F41.9 Anxiety disorder, unspecified; F32.9 Major depressive disorder, single episode, unspecified; F17.200 Nicotine dependence, unspecified, uncomplicated; F12.90 Cannabis use, unspecified, uncomplicated
CPT/HCPCS: 36415; 71046; 80053; 83605; 83880; 85025; 85610; 85730; 93005; 93970; 99284

== ENCOUNTER 2020-11-05 14:42 | Emergency (ER) | payer OTHER ==
[2020-11-05] MEDS ORDERED: MORPHINE SULFATE 4 MG/ML SYRINGE IM STA (15:23)
[2020-11-05] MEDS ORDERED: methylPREDNISolone SOD SUCCI 125 MG/2 ML VIAL IM ONE (15:23)
--- NOTE | 2020-11-05 16:29 | XR ---
MR spine HISTORY: Back pain 3 views of the lumbar spine correlation prior exam 06/25/2019 Lumbar vertebral bodies show preserved height, alignment, and bone mineralization. No paraspinal mass . Disc spaces are maintained. Graph impression: Normal lumbar spine.
--- NOTE | 2020-11-05 16:30 | XR ---
Thoracic spine HISTORY: Back pain 3 views of the thoracic spine Thoracic vertebral bodies show preserved height, alignment, and bone mineralization. Disc spaces are maintained. IMPRESSION: Normal thoracic spine.
--- NOTE | 2020-11-05 16:31 | XR ---
Sacrum and coccyx HISTORY: Pain 3 views of the sacrum and coccyx Bone mineralization, joint spaces and alignment are maintained. There is a pelvic calcification which is likely stable on the left and likely represents phlebolith. IMPRESSION: Normal sacrum and coccyx
--- NOTE | 2020-11-05 16:54 | ED ---
Back Pain HPI - General Chief Complaint: Back Pain/Injury Stated Complaint: back pain Time Seen by Provider: 11/05/20 15:00 Source: patient, RN notes reviewed Limitations: no limitations - History of Present Illness Initial Comments: Patient is a 30-year-old female that presents to the emergency department complaining of low back pain with radiation down the left leg. She notes that the initial incident she bent over to picker some cigarettes off the ground stood up felt something in her back give patient was that she tried at home treatment with rest Motrin and Tylenol. She tried to call her primary care and they told her come emergency room to get evaluated. Patient notes that she does have some back tenderness on the right paraspinal muscles with radiation down t he left leg. She denied any saddle anesthesia, bladder bowel incontinence or retention, chest pain first breath headache nausea vomiting diarrhea constipation fever fatigue chills. - Related Data Home Medications Medication Instructions Recorded Confirmed busPIRone HCL 15 mg PO TID 09/11/20 09/11/20 Escitalopram [Lexapro] 10 mg PO DAILY 11/05/20 11/05/20 Ibuprofen [Motrin] 800 mg PO AC-TID PRN 11/05/20 11/05/20 diazePAM [Valium] 2 mg PO Q6H PRN 11/05/20 11/05/20 Previous Rx's Medication Instructions Recorded predniSONE 50 mg PO DAILY #5 tab 11/05/20 Allergies Allergy/AdvReac Type Severity Reaction Status Date / Time Iodinated Contrast Media Allergy BURNING Verified 11/05/20 16:48 FROM THE INSIDE/ITCHING Review of Systems ROS Statement: Those systems with pertinent positive or pertinent negative responses have been documented in the HPI. ROS Other: All systems not noted in ROS Statement are negative. Past Medical History Past Medical History: Asthma, COPD Additional Past Medical History / Comment(s): concussions, bronchitis History of Any Multi-Drug Resistant Organisms: None Reported Additional Past Surgical History / Comment(s): D & C x2 Past Anesthesia/Blood Transfusion Reactions: No Reported Reaction Past Psychological History: Anxiety, Bipolar, Depression, PTSD Smoking Status: Current every day smoker Past Alcohol Use History: Occasional Past Drug Use History: Marijuana - Past Family History Mother Family Medical History: Respiratory Disorder General Exam Limitations: no limitations General appearance: alert, in no apparent distress Head exam: Present: atraumatic, normocephalic, normal inspection Eye exam: Present: normal appearance, PERRL, EOMI. Absent: scleral icterus, conjunctival injection, periorbital swelling Neck exam: Present: normal inspection Respiratory exam: Present: normal lung sounds bilaterally. Absent: respiratory distress, wheezes, rales, rhonchi, stridor Cardiovascular Exam: Present: regular rate, normal rhythm, normal heart sounds. Absent: systolic murmur, diastolic murmur, rubs, gallop, clicks Back exam: Present: normal inspection, full ROM, paraspinal tenderness (Right side from mid to lower back). Absent: tenderness, vertebral tenderness Neurological exam: Present: alert, oriented X3 Psychiatric exam: Present: normal affect, normal mood Skin exam: Present: warm, dry, intact, normal color. Absent: rash Course Vital Signs 11/05/20 14:51 Temperature 99.7 F H Pulse Rate 104 H Respiratory 16 Rate Blood Pressure 113/59 O2 Sat by Pulse 96 Oximetry Medical Decision Making - Medical Decision Making 30-year-old female complaining of mid to lower back pain on the right side with radicular symptoms down the left side and left SI tenderness. X-rays of the thoracic, lumbar, sacrum and coccyx, 4 mg of morphine, 125 mg of Solu-Medrol ordered. X-ray imaging negative for any acute fractures or dislocations. Given patient's symptoms and negative x-ray imaging most likely muscle spasms with sciatica. Case discussed with Dr. Pascal, patient can discharge home with follow-up primary care. - Radiology Data Radiology results: report reviewed, image reviewed X-ray of the lumbar spine: normal lumbar spine. Thoracic spine x-ray: Normal thoracic spine. Sacrum and coccyx x-ray: Normal sacrum and coccyx. Disposition Clinical Impression: Strain of lumbar region, Sciatica Disposition: HOME SELF-CARE Condition: Stable Instructions (If sedation given, give patient instructions): Acute Low Back Pain (ED) Additional Instructions: Please return to the Emergency Department if symptoms worsen or any other concerns. Take steroids as prescribed. Follow-up with primary care in the next several days. Avoid any strenuous activity or exercise. Is patient prescribed a controlled substance at d/c from ED?: No Referrals: Moira Mansfield MD [Primary Care Provider] - 1-2 days Time of Disposition: 16:57
[2020-11-05 17:19] VITALS: BP 131/71; PULSE 91; RESP 20; TEMP 97.6
== END 2020-11-05 17:05 | disposition home or self-care (01) ==
LOC: EC 14:42
DX: S39.012A Strain of muscle, fascia and tendon of lower back, initial encounter (principal); J44.9 Chronic obstructive pulmonary disease, unspecified; F32.9 Major depressive disorder, single episode, unspecified; F17.210 Nicotine dependence, cigarettes, uncomplicated; F12.90 Cannabis use, unspecified, uncomplicated; X58.XXXA Exposure to other specified factors, initial encounter
CPT/HCPCS: 72070; 72100; 72220; 99283; 96372 ×2; J2270; J2930

== ENCOUNTER → 2020-11-25 | Outpatient (CLI) | payer OTHER ==
[2020-11-25 16:35] VITALS: BP 110/73; PULSE 79; RESP 18; TEMP 98.3; BMI 50.7
--- NOTE | 2020-11-25 16:54 | P.HPBAR ---
Bariatric H&P - History & Physicial H&P Date: 11/25/20 History & Physicial: Visit/CC: initial visit Patient initial contact: Initial weight: Initial weight in pounds: Height: 5 ft 5 in Initial BMI: Last weight: Current weight: 138.255 kg Current weight in pounds: 304.80 Current BMI: 50.7 [place] body weight (based on NIH guidelines): 56.699 kg Excess body weight loss: The patient is a 30 year-old F who presents for Bariatric Assessment. DATE OF SERVICE: 11/25/2020 REASON FOR CONSULTATION: Initial bariatric evaluation. HISTORY OF PRESENT ILLNESS: Charissa Pascal is a 30-year-old female who comes with lifelong morbid obesity. She comes in looking into weight loss. She is exe rcising. She reports back pain. She has trouble with breathing. She smokes. She is looking into the sleeve. She reports gastroesophageal reflux disease. Her highest weight is at present. She was 309 pounds. She tried Weight watchers, Nutrisystem. She lost down from 280 to 200 pounds on her own over 2 years ago. This is her first month of medical supervised weight loss. No reports of gastrointestinal cancers. No reports of deep venous thrombosis. She denies abdominal surgeries. She denies diarrhea. She has food allergies and food intolerances. She cannot tolerate kiwi, red dye. She reports lower back pain. She has sciatica. She smokes. Her hips has arthritis. She has knee pain. She denies fatty food intolerance. She has dysphagia to pills. She has low iron. She presents to me for the first time in consultation for surgical weight loss. At height of 5 feet 5 inches, her ideal body weight is 149 pounds. Her highest weight is 309 pounds, BMI 51.5. She comes in 304 pounds. Her body mass index is 50.7. She is 155 pounds overweight. PAST MEDICAL HISTORY: 1. Morbid obesity due to excess calories 2. Body mass index of 51.5, initial 3. Bronchitis 4. Concussion 5. Chronic obstructive pulmonary disease 6. Asthma 7. Osteoarthritis of the lower back 8. Osteoarthritis of the hips 9. Osteoarthritis of the knees 10. Iron deficiency anemia 11. Gastroesophageal reflux disease 12. Sciatica PAST SURGICAL HISTORY: 1. Dilation and Curettage HOME MEDICATIONS: Home Medications Medication Instructions Recorded Confirmed Ibuprofen [Motrin] 800 mg PO TID PRN 11/05/20 02/16/21 Previous Rx's Medication Instructions Recorded Ibuprofen [Motrin] 600 mg PO Q8HR PRN #30 tab 02/16/21 ALLERGIES: Allergies Allergy/AdvReac Type Severity Reaction Status Date / Time Iodinated Contrast Media Allergy BURNING Verified 02/16/21 18:14 FROM THE INSIDE/ITCHING SOCIAL HISTORY: Tobacco use. FAMILY HISTORY: No family history of ulcerative colitis disease or Crohn's disease. Family history of morbid obesity. No lupus in the family. No reports of stomach or esophageal cancer. REVIEW OF ORGAN SYSTEMS: CONSTITUTIONAL: At height of 5 feet 5 inches, her ideal body weight is 149 pounds. She comes in 304 pounds. Her body mass index is 50.7. She is 155 pounds overweight. HEENT: Denies any active troubles with vision or hearing. She has dysphagia to pills. ENDOCRINE: Denies diabetes. No hypothyroidism. CARDIOVASCULAR: Denies reports of palpitations or heart attacks or chest pain. RESPIRATORY: Has asthma. Has chronic obstructive pulmonary disease. She has trouble with breathing. GASTROINTESTINAL: Denies any bright red blood per rectum. No diarrhea. No constipation. Has gastroesophageal reflux disease. She has food allergies and food intolerances. She cannot tolerate kiwi, red dye. GENITOURINARY: Denies bladder urgency. No recent blood in urine MUSCULOSKELETAL: Has lower back pain and joint pain. NEURO: No headaches. No seizure disorders. PSYCH: Denies depression. No suicidal ideation. RHEUMATOLOGIC: No lupus. No rheumatoid arthritis. HEMATOLOGIC: Denies any abnormal bleeding or bruising. SKIN: No rash. No skin cancer. PHYSICAL EXAM: VITAL SIGNS: Height 5 foot 5 inches, weight 304 pounds. BMI 50.7 Vital Signs Temp 98.3 F 11/25/20 16:31 Pulse 79 11/25/20 16:31 Resp 18 11/25/20 16:31 BP 110/73 11/25/20 16:31 Pulse Ox GENERAL: Well-developed in no acute distress. HEENT: No scleral icterus. Extraocular movements grossly intact. Hears conversational speech. No nasal drainage. NECK: Supple without lymphadenopathy. CHEST: Nonlabored respirations with equal bilateral excursions. CARDIOVASCULAR: Regular rate and regular rhythm. Distal 2+ pulses. ABDOMEN: Obese, soft, nontender, nondistended. MUSCULOSKELETAL: No clubbing, cyanosis. NEURO: No focal or lateralizing signs. Cranial nerves 2 through 12 grossly within normal limits. PSYCH: Appropriate affect. Alert and oriented to person, place and time. SKIN: Good skin turgor. Well perfused. ASSESSMENT: 1. Morbid obesity due to excess calories 2. Body mass index of 51.5, initial 3. Bronchitis 4. Concussion 5. Chronic obstructive pulmonary disease 6. Asthma 7. Osteoarthritis of the lower back 8. Osteoarthritis of the hips 9. Osteoarthritis of the knees 10. Iron deficiency anemia 11. Gastroesophageal reflux disease 12. Sciatica PLAN: 1. Surgical options including a band, gastric bypass, sleeve gastrectomy were described in detail. She is looking into the sleeve gastrectomy. 2. Will review [place] bariat[facility] surgical collaborative data and outcomes calculator after labs and EGD. 3. Recommend a bariatric metabolic panel to evaluate for micro- including macronutrient deficiencies. 4. For history of daytime somnolence, recommend evaluation and treatment for sleep apnea. 5. Dietary surveillance and counseling was reviewed. Increased protein intake over 65 grams daily advised. 6. Will need cardiac risk assessment. 7. Recommend medical risk assessment. 8. Psych assessment per insurance guidelines. 9. Recommend upper endoscopy. 10. Recommend 12-lead EKG. 11. Recommend esophagram for dysphagia 12. Recommend urine nicotine testing for history of tobacco abuse disorder 13. Recommend urine drug screen Thank you for this consultation. Past Medical History Past Medical History: Asthma, COPD Additional Past Medical History / Comment(s): concussions, bronchitis History of Any Multi-Drug Resistant Organisms: None Reported Additional Past Surgical History / Comment(s): D & C x2 Past Anesthesia/Blood Transfusion Reactions: No Reported Reaction Smoking Status: Current every day smoker - Past Family History Mother Family Medical History: Respiratory Disorder Surgical - Exam Vital Signs Temp Pulse Resp BP 98.3 F 79 18 110/73 11/25/20 16:31 11/25/20 16:31 11/25/20 16:31 11/25/20 16:31 Results - Labs 01/22/21 12:50 01/22/21 12:50 Bariatric Checklist Checklist: Plan: Checklist: EGD: 1. Hiatal hernia: 2. H. Pylori: HgbA1c: Vitamin D: Smoking: Current every day smoker Primary care physician referral: Aylin Rosendo (Dr. Mini) Psychiatry clearance: Cardiology clearance: Sleep study: Diet journal: VTE risk score: VTE risk level: Rehab needs at discharge:
== END | disposition home or self-care (01) ==
LOC: BARWHC3 15:05
PROVIDERS: ATTEND Surgery Plastic and Reconstructive Surgery
DX: E66.01 Morbid (severe) obesity due to excess calories (principal); F17.200 Nicotine dependence, unspecified, uncomplicated; J45.909 Unspecified asthma, uncomplicated; Z68.43 Body mass index [BMI] 50.0-59.9, adult; Z87.09 Personal history of other diseases of the respiratory system
CPT/HCPCS: 99203

== ENCOUNTER 2020-12-23 18:55 | Emergency (ER) | payer OTHER ==
[2020-12-23 19:38] VITALS: RESP 18
[2020-12-23] MEDS ORDERED: MORPHINE SULFATE 4 MG/ML SYRINGE IM STA (20:19)
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
[2020-12-23 23:00] VITALS: BP 116/70; PULSE 71; TEMP 97.7
== END 2020-12-23 22:45 | disposition home or self-care (01) ==
LOC: EC 18:55
DX: S09.90XA Unspecified injury of head, initial encounter (principal); S16.1XXA Strain of muscle, fascia and tendon at neck level, initial encounter; R07.9 Chest pain, unspecified; M54.16 Radiculopathy, lumbar region; J44.9 Chronic obstructive pulmonary disease, unspecified; F17.200 Nicotine dependence, unspecified, uncomplicated; Z88.8 Allergy status to other drugs, medicaments and biological substances; V49.60XA Unspecified car occupant injured in collision with unspecified motor vehicles in traffic accident, initial encounter; Y92.410 Unspecified street and highway as the place of occurrence of the external cause
CPT/HCPCS: 96372; 99284; 72100; 72125; 70450; J2270

== ENCOUNTER 2021-01-22 11:47 | Day surgery (SDC) | payer OTHER ==
[2021-01-20 12:08] VITALS: BMI 47.8
[~2021-01-22 11:47] MED LIST: DEXAMETHASONE SOD PHOSPHATE 4 MG/ML 1 ML VIAL IV ONE; HYDROmorphone 0.5 MG/0.5 ML SYRINGE IVP PRN; LACTATED RINGERS 1,000 ML IV SCH; MIDAZOLAM 2 MG/2 ML VIAL IV PRN; ONDANSETRON 4 MG/2 ML VIAL IVP ONE; Pre Op ABX Message 1 EACH MISC MISCELLANE ONE; SCOPOLAMINE 1.5MG/72HR PATCH TRANSDERM ONE
[2021-01-22 12:34] VITALS: TEMP 97.8
[2021-01-22] MEDS ORDERED: LACTATED RINGERS 1,000 ML IV ONE ×2 (12:54)
[2021-01-22] MEDS ORDERED: HYDROcodone/APAP 7.5-325MG 1 EACH TAB PO ONE (13:15)
[2021-01-22] MEDS ORDERED: KETAMINE 10 MG/ML 20 ML VIAL ONE (14:14)
[2021-01-22] MEDS ORDERED: PROPOFOL 10 MG/ML 20 ML VIAL IV ONE (14:14)
[2021-01-22] MEDS ORDERED: LIDOCAINE 1% INJ 10MG/ML (20 ML MDV) ONE (14:14)
[2021-01-22] MEDS ORDERED: fentaNYL (PF) 50 MCG/ML 2 ML AMP ONE (14:14)
[2021-01-22] MEDS ORDERED: MIDAZOLAM 2 MG/2 ML VIAL ONE (14:14)
--- NOTE | 2021-01-22 14:16 | P.OP ---
Date of Procedure: 01/22/21 Procedure(s) Performed: right CTR no complications no ebl no assist 10 min tourniquet time no abnormal findings
[2021-01-22] MEDS ORDERED: LIDOCAINE 1% INJ 10MG/ML (20 ML MDV) SQ ONE (14:19)
[2021-01-22] MEDS ORDERED: HYDROcodone/APAP 7.5-325MG 1 EACH TAB ONE (15:14)
[2021-01-22 15:17] VITALS: RESP 16
[2021-01-22 15:39] VITALS: BP 116/78; PULSE 70
== END 2021-01-22 15:46 | disposition home or self-care (01) ==
LOC: OR 11:47
PROVIDERS: ATTEND Orthopaedic Surgery
DX: G56.01 Carpal tunnel syndrome, right upper limb (principal); J44.9 Chronic obstructive pulmonary disease, unspecified; F17.210 Nicotine dependence, cigarettes, uncomplicated; K21.9 Gastro-esophageal reflux disease without esophagitis; Z97.2 Presence of dental prosthetic device (complete) (partial); Z79.1 Long term (current) use of non-steroidal anti-inflammatories (NSAID); Z79.899 Other long term (current) drug therapy; Z91.041 Radiographic dye allergy status
CPT/HCPCS: 81025; 64721; J2250; J1100; J2405; J2001; J3010; J2704

== ENCOUNTER 2021-02-16 17:17 | Emergency (ER) | payer OTHER ==
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
[2021-02-16] MEDS ORDERED: KETOROLAC 15 MG/ML 1 ML VIAL IM STA (18:18)
[2021-02-16 18:55] VITALS: BP 99/70; PULSE 60; RESP 16; TEMP 98.2
--- NOTE | 2021-02-16 19:44 | XR ---
EXAMINATION TYPE: XR ankle complete LT DATE OF EXAM: 02/16/2021 COMPARISON: 12/10/2015 HISTORY: 30 years Female. STUDY INDICATION GIVEN: pain . TECHNIQUE: 3 radiographs of the left ankle IMPRESSION: Well-corticated osseous fragment at the superior aspect of the talonavicular joint is again demonstra kayla likely relating to remote injury. There are osteoarthritic changes at the talonavicular joint. No significant soft tissue normality.
--- NOTE | 2021-02-16 19:49 | XR ---
EXAMINATION TYPE: XR knee complete LT DATE OF EXAM: 02/16/2021 COMPARISON: NONE HISTORY: 30 years Female. STUDY INDICATION GIVEN: pain . TECHNIQUE: 3 radiographs of the left knee IMPRESSION: No acute osseous or articular abnormalities seen. No significant joint effusion or soft tissue swelli ng.
--- NOTE | 2021-02-16 20:04 | XR ---
EXAMINATION TYPE: XR lumbar spine 2 or 3V DATE OF EXAM: 02/16/2021 COMPARISON: NONE HISTORY: 30 years Female. STUDY INDICATION GIVEN: pain . TECHNIQUE: Frontal and lateral radiographs of the spine IMPRESSION: There is straightening of the lumbar curvature. There are 5 nonrib-bearing vertebral bodies. The vert ebral body heights are normal. Posterior elements are acutely intact. No significant spondylosis. Slight asymmetric increased sclerosis of the left sacroiliac joint compared to the right.
[2021-02-16] MEDS ORDERED: ACET/COD 300 MG/30 MG STARTER PACK 6 TAB BTL PO STA (20:29)
== END 2021-02-16 21:11 | disposition home or self-care (01) ==
LOC: EC 17:17
DX: S93.402A Sprain of unspecified ligament of left ankle, initial encounter (principal); S30.0XXA Contusion of lower back and pelvis, initial encounter; J45.909 Unspecified asthma, uncomplicated; F41.9 Anxiety disorder, unspecified; F32.9 Major depressive disorder, single episode, unspecified; F43.12 Post-traumatic stress disorder, chronic; F17.200 Nicotine dependence, unspecified, uncomplicated; F12.90 Cannabis use, unspecified, uncomplicated; W13.2XXA Fall from, out of or through roof, initial encounter
CPT/HCPCS: 99283; 96372; 72100; 73562; 73610; J1885

== ENCOUNTER 2021-04-19 08:55 | Day surgery (SDC) | payer OTHER ==
[2021-04-15 13:11] VITALS: BMI 46.3
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
[~2021-04-19 08:55] MED LIST changes: -DEXAMETHASONE SOD PHOSPHATE 4 MG/ML 1 ML VIAL IV ONE; -HYDROmorphone 0.5 MG/0.5 ML SYRINGE IVP PRN; -MIDAZOLAM 2 MG/2 ML VIAL IV PRN; -ONDANSETRON 4 MG/2 ML VIAL IVP ONE; -Pre Op ABX Message 1 EACH MISC MISCELLANE ONE; -SCOPOLAMINE 1.5MG/72HR PATCH TRANSDERM ONE
[2021-04-19 09:39] VITALS: TEMP 97.9
[2021-04-19] MEDS ORDERED: LIDOCAINE 1% (10MG/ML) FOR IV START INTRADERMA ONE (09:46)
[2021-04-19] MEDS ORDERED: PROPOFOL 10 MG/ML 20 ML VIAL IV ONE (10:01)
[2021-04-19] MEDS ORDERED: MIDAZOLAM 2 MG/2 ML VIAL ONE (10:01)
[2021-04-19] MEDS ORDERED: LIDOCAINE 1% INJ 10MG/ML (20 ML MDV) ONE (10:01)
[2021-04-19 10:22] VITALS: RESP 16
--- NOTE | 2021-04-19 10:23 | P.PCN ---
Date of Procedure: 04/19/21 Description of Procedure: PREOPERATIVE DIAGNOSIS: Gastroesophageal reflux disease. Morbid obesity. POSTOPERATIVE DIAGNOSIS: Morbid obesity. Gastritis with gastric ulcers Gastroesophageal reflux disease. OPERATION: Esophagogastroduodenoscopy with biopsies along antrum. SURGEON: Lolis Velázquez MD ANESTHESIA: MAC. INDICATIONS: The patient is a 28-year-old female who presents with a history of reflux disease. Benefits and risks of the procedure were described. Informed consent was obtained. DESCRIPTION: The patient was brought into the endoscopy suite and laid in the left lateral decubitus position. An Olympus gastroscope was passed along the posterior oropharynx down to the distal esophagus where the squamocolumnar junction was encountered at 37 cm from the incisors. The stomach was entered and no bile reflux was found. Additional findings are listed below. Biopsies with cold forceps were obtained of the antrum. The first through third portion of the duodenum was examined and unremarkable. Retroflexion of the scope confirmed Hill grade 2 lower esophageal valve. The squamocolumnar junction demonstrated LA grade B erosive esophagitis. The stomach was desufflated. The patient tolerated the procedure well. FINDINGS: Squamocolumnar junction 37 cm from the incisors. Diaphragmatic hiatus at 37 cm. Hill grade 2 lower esophageal valve. LA grade B erosive esophagitis. No active duodenitis. Chronic gastritis with gastric ulcers RECOMMENDATIONS: Omeprazole 40 mg daily for 2 weeks Plan - Discharge Summary Discharge Rx Participant: No New Discharge Prescriptions: New Omeprazole [PriLOSEC] 40 mg PO DAILY #14 cap Continue Multivitamins, Thera [Multivitamin (formulary)] 1 tab PO DAILY Ferrous Sulfate [Iron (65 MG Elemental)] 325 mg PO DAILY Liraglutide [Victoza 3-Dom] 1.2 mg SQ DAILY traMADol HCL [Ultram] 50 mg PO BID PRN PRN Reason: Pain Discontinued Ibuprofen [Motrin] 800 mg PO TID PRN PRN Reason: Pain Discharge Medication List Ferrous Sulfate [Iron (65 MG Elemental)] 325 mg PO DAILY 04/15/21 [History] Liraglutide [Victoza 3-Dom] 1.2 mg SQ DAILY 04/15/21 [History] Multivitamins, Thera [Multivitamin (formulary)] 1 tab PO DAILY 04/15/21 [History] traMADol HCL [Ultram] 50 mg PO BID PRN 04/15/21 [History] Omeprazole [PriLOSEC] 40 mg PO DAILY #14 cap 04/19/21 [Rx] Follow up Appointment(s)/Referral(s): [facility] [NON-STAFF] - 05/05/21 Patient Instructions/Handouts: Peptic Ulcer (DC) Discharge Disposition: HOME SELF-CARE
[2021-04-19 10:39] VITALS: BP 127/80; PULSE 67
== END 2021-04-19 11:30 | disposition home or self-care (01) ==
LOC: ORWHC2ENDO 08:55
PROVIDERS: ATTEND Surgery Plastic and Reconstructive Surgery
DX: K21.9 Gastro-esophageal reflux disease without esophagitis (principal); K31.9 Disease of stomach and duodenum, unspecified; E66.01 Morbid (severe) obesity due to excess calories; Z68.42 Body mass index [BMI] 45.0-49.9, adult; K22.10 Ulcer of esophagus without bleeding; K25.9 Gastric ulcer, unspecified as acute or chronic, without hemorrhage or perforation; J45.909 Unspecified asthma, uncomplicated; M51.26 Other intervertebral disc displacement, lumbar region; M50.20 Other cervical disc displacement, unspecified cervical region; G58.9 Mononeuropathy, unspecified; Z98.890 Other specified postprocedural states; F17.200 Nicotine dependence, unspecified, uncomplicated; Z83.6 Family history of other diseases of the respiratory system; Z80.9 Family history of malignant neoplasm, unspecified; Z79.899 Other long term (current) drug therapy; Z79.891 Long term (current) use of opiate analgesic; Z91.041 Radiographic dye allergy status; Z91.018 Allergy to other foods
CPT/HCPCS: 81025; 88305; 43239; J2250; J2001; J2704

== ENCOUNTER 2023-02-17 15:14 | Emergency (ER) | payer OTHER ==
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
[2023-02-17 15:55] VITALS: TEMP 97.8
--- NOTE | 2023-02-17 16:18 | XR ---
EXAMINATION TYPE: XR chest 2V DATE OF EXAM: 02/17/2023 COMPARISON: 09/11/2020 HISTORY: 32-year-old female shortness of breath and productive cough TECHNIQUE: PA and lateral views FINDINGS: The cardiomediastinal silhouette, aorta, and pulmonary vasculature are within normal limits. Lungs an d pleural spaces are clear. IMPRESSION: No acute cardiopulmonary process.
[2023-02-17] MEDS ORDERED: methylPREDNISolone SOD SUCCI 125 MG/2 ML VIAL IM ONE (16:20)
[2023-02-17] MEDS ORDERED: IPRATROPIUM-ALBUTEROL 3 ML NEB INHALATION STA ×2 (16:20)
[2023-02-17] MEDS ORDERED: KETOROLAC 15 MG/ML 1 ML VIAL IM STA (17:13)
[2023-02-17 18:27] VITALS: BP 133/72; PULSE 86; RESP 24
== END 2023-02-17 18:42 | disposition home or self-care (01) ==
LOC: EC 15:14
DX: J45.901 Unspecified asthma with (acute) exacerbation (principal); N39.0 Urinary tract infection, site not specified; F17.210 Nicotine dependence, cigarettes, uncomplicated; F12.90 Cannabis use, unspecified, uncomplicated; Z20.822 Contact with and (suspected) exposure to COVID-19; Z91.041 Radiographic dye allergy status; Z91.018 Allergy to other foods
CPT/HCPCS: 94640; 87636; 71046; 99285; 96372 ×2; J2930; J1885

== ENCOUNTER 2023-04-27 09:00 | Emergency (ER) | payer OTHER ==
[2023-04-27 09:24] VITALS: RESP 18
[2023-04-27] MEDS ORDERED: KETOROLAC 15 MG/ML 1 ML VIAL IM STA (10:43)
[2023-04-27] MEDS ORDERED: predniSONE 50 MG TAB PO STA (10:43)
--- NOTE | 2023-04-27 10:52 | ED ---
General Adult HPI - General Chief complaint: Upper Respiratory Infection Stated complaint: Cough Time Seen by Provider: 04/27/23 10:34 Source: patient, RN notes reviewed Mode of arrival: ambulatory Limitations: no limitations - History of Present Illness Initial comments: 32-year-old -[place] female presents to the emergency department with a chief complaint of cough. She is also complaining of congestion, cough that is productive with light yellow to brown sputum. She reports feeling feverish. She reports that she stays in a shoulder. She reports that there is multiple recent sick contacts. Denies any chest pain or palpitations, nausea or vomiting. She has been applying Patric's vaporub to her chest with mild improvement. - Related Data Home Medications Medication Instructions Recorded Confirmed Ferrous Sulfate [Iron (65 MG 325 mg PO DAILY 04/15/21 05/05/21 Elemental)] Liraglutide [Victoza 3-Dom] 1.2 mg SQ DAILY 04/15/21 05/05/21 Multivitamins, Thera [Multivitamin 1 tab PO DAILY 04/15/21 05/05/21 (formulary)] traMADol HCL [Ultram] 50 mg PO BID PRN 04/15/21 05/05/21 Ibuprofen [Motrin] 800 mg PO Q8H 05/05/21 05/05/21 Previous Rx's Medication Instructions Recorded Omeprazole [PriLOSEC] 40 mg PO DAILY #14 cap 04/19/21 predniSONE [Deltasone] 60 mg PO DAILY 5 Days #15 tab 02/17/23 Albuterol Nebulized [Ventolin 2.5 mg INHALATION Q4H PRN #75 ml 04/27/23 Nebulized] Ibuprofen [Motrin] 800 mg PO Q8HR PRN #30 tab 04/27/23 Allergies Allergy/AdvReac Type Severity Reaction Status Date / Time Iodinated Contrast Media Allergy BURNING Verified 04/27/23 09:15 FROM THE INSIDE/ITCHING kiwi Allergy Anaphylaxis Verified 04/27/23 09:15 Review of Systems ROS Statement: Those systems with pertinent positive or pertinent negative responses have been documented in the HPI. ROS Other: All systems not noted in ROS Statement are negative. Past Medical History Past Medical History: Asthma, Musculoskeletal Disorder Additional Past Medical History / Comment(s): Hx Concussions, Bronchitis. Herniated discs in back/neck, pinched nerves. Edema Lt ankle, foot for sprain. History of Any Multi-Drug Resistant Organisms: None Reported Past Surgical History: Orthopedic Surgery Additional Past Surgical History / Comment(s): D&C X2. CTR, tendon surg Rt wrist Past Anesthesia/Blood Transfusion Reactions: Motion Sickness Past Psychological History: Anxiety, Depression, PTSD Smoking Status: Current every day smoker Past Alcohol Use History: None Reported Past Drug Use History: Marijuana - Past Family History Mother Family Medical History: Respiratory Disorder Brother(s) Family Medical History: Cancer Additional Family Medical History / Comment(s): possible lung cancer Sister(s) Family Medical History: Cancer Additional Family Medical History / Comment(s): renal cancer General Exam - General Exam Comments Initial Comments: General: Alert, in no acute distress Head: atraumatic normocephalic. Eyes PERRL, EOMI intact, mucous membranes moist Respiratory: Lungs clear to auscultation bilaterally Cardiovascular: Heart rate regular rate and rhythm Abdominal: Soft without guarding or rebound Extremities: Normal inspection with full range of motion and normal capillary refill Neuroogic: alert and oriented 3, CN II-XII intact, able to ambulate with steady gait Skin: warm dry and intact with normal color Limitations: no limitations Course Vital Signs 04/27/23 04/27/23 04/27/23 09:11 11:21 11:26 Temperature 97 F L 97.9 F Pulse Rate 94 90 Respiratory 18 18 18 Rate Blood Pressure 122/63 120/79 O2 Sat by Pulse 99 99 Oximetry Medical Decision Making - Medical Decision Making Was pt. sent in by a medical professional or institution (, PA, SEED SERVICE ADVISOR, urgent care, hospital, or care home...) When possible be specific @ -[No] Did you speak to anyone other than the patient for history (EMS, parent, family, police, friend...)? What history was obtained from this source @ -[No] Did you review nursing and triage notes (agree or disagree)? Why? @ -[I reviewed and agree with nursing and triage notes] Were old charts reviewed (outside hosp., previous admission, EMS record, old EKG, old radiological studies, urgent care reports/EKG's, care home records)? Report findings @ -[No old charts were reviewed] Differential Diagnosis (chest pain, altered mental status, abdominal pain women, abdominal pain men, vaginal bleeding, weakness, fever, dyspnea, syncope, headache, dizziness, GI bleed, back pain, seizure, CVA, palpatations, mental health, musculoskeletal)? @ -[not applicable] EKG interpreted by me (3pts min.). @ -[As above] X-rays interpreted by me (1pt min.). @ -[None done] CT interpreted by me (1pt min.). @ -[None done] U/S interpreted by me (1pt. min.). @ -[None done] What testing was considered but not performed or refused? (CT, X-rays, U/S, labs)? Why? @ -[None] What meds were considered but not given or refused? Why? @ -[None] Did you discuss the management of the patient with other professionals (professionals i.e. , PA, SEED SERVICE ADVISOR, lab, RT, psych nurse, social sciences department chair, books binder, teacher, jailer/training officer, case planner)? Give summary @ -[No] Was smoking cessation discussed for >3mins.? @ -[No] Was critical care preformed (if so, how long)? @ -[No] Were there social determinants of health that impacted care today? How? (Homelessness, low income, unemployed, alcoholism, drug addiction, transportation, low edu. Level, literacy, decrease access to med. care, detention, rehab)? @ -[No] Was there de-escalation of care discussed even if they declined (Discuss DNR or withdrawal of care, Hospice)? DNR status @ -[No] What co-morbidities impacted this encounter? (DM, HTN, Smoking, COPD, CAD, Cancer, CVA, ARF, Chemo, Hep., AIDS, mental health diagnosis, sleep apnea, morbid obesity)? @ -[None] Was patient admitted / discharged? Hospital course, mention meds given and rou te, prescriptions, significant lab abnormalities, going to OR and other pertinent info. @ Discharged. This is a pleasant 32-year-old -[place] female who presents the emergency department with a chief complaint of cough. Patient had a thorough history and physical exam performed. Patient vital signs are stable. Patient is afebrile. Heart rate regular rate and rhythm, lungs are to auscultation bilaterally abdomen soft and nontender. Patient is RSV positive. Patient was given oral steroids and prescription refill for her albuterol nebulizer. Return precautions discussed at length. Discharged in stable condition. Case is discussed with Dr. Oleary, ED attending who agrees with plan of care Undiagnosed new problem with uncertain prognosis? @ -[No] Drug Therapy requiring intensive monitoring for toxicity (Heparin, Nitro, Insulin, Cardizem)? @ -[No] Were any procedures done? @ -[No] Diagnosis/symptom? @ -RSV - COugh Acute, or Chronic, or Acute on Chronic? @ -Acute Uncomplicated (without systemic symptoms) or Complicated (systemic symptoms)? @ -Uncomplicated Side effects of treatment? @ -[No] Exacerbation, Progression, or Severe Exacerbation? @ -[No] Poses a threat to life or bodily function? How? (Chest pain, USA, CT, pneumonia, PE, COPD, DKA, ARF, appy, cholecystitis, CVA, Diverticulitis, Homicidal, Suicidal, threat to staff... and all critical care pts) @ -Low likeihood - Lab Data Lab Results 04/27/23 Range/Units 09:16 Influenza Type A (PCR) Not Detected (Not Detectd) Influenza Type B (PCR) Not Detected (Not Detectd) RSV (PCR) Detected A (Not Detectd) SARS-CoV-2 (PCR) Not Detected (Not Detectd) Disposition Clinical Impression: RSV infection Disposition: HOME SELF-CARE Condition: Stable Instructions (If sedation given, give patient instructions): Respiratory Syncytial Virus (ED) Additional Instructions: Monitor symptoms closely Please take Tylenol and Motrin for fever control Please return to the nearest emergency department if worsening shortness breath or high fever develops Prescriptions: Ibuprofen [Motrin] 800 mg PO Q8HR PRN #30 tab PRN Reason: Pain Albuterol Nebulized [Ventolin Nebulized] 2.5 mg INHALATION Q4H PRN #75 ml PRN Reason: difficulty in breathing Is patient prescribed a controlled substance at d/c from ED?: No Referrals: None,Stated [Primary Care Provider] - 1-2 days Forms: Area PCPs Time of Disposition: 10:52
[2023-04-27 11:28] VITALS: BP 120/79; PULSE 90; TEMP 97.9
== END 2023-04-27 13:20 | disposition home or self-care (01) ==
LOC: EC 09:00
DX: J45.909 Unspecified asthma, uncomplicated (principal); B97.4 Respiratory syncytial virus as the cause of diseases classified elsewhere; F17.200 Nicotine dependence, unspecified, uncomplicated; F12.90 Cannabis use, unspecified, uncomplicated; Z86.59 Personal history of other mental and behavioral disorders; Z20.822 Contact with and (suspected) exposure to COVID-19; Z91.041 Radiographic dye allergy status; Z91.018 Allergy to other foods
CPT/HCPCS: 87636; 99283; 96372; J1885; J7512

== ENCOUNTER 2023-12-31 16:53 | Emergency (ER) | payer OTHER ==
[2023-12-31 17:05] VITALS: TEMP 98.4
--- NOTE | 2023-12-31 17:08 | ED ---
General Adult HPI - General Chief complaint: Allergic Reaction Stated complaint: allergic reaction Time Seen by Provider: 12/31/23 17:04 Source: EMS Mode of arrival: EMS Limitations: no limitations - History of Present Illness Initial comments: Patient is a 33-year-old female with past medical history of asthma/COPD presenting today for allergic reaction. Patient went to the coffee shop, got an iced coffee and ate peanut butter cups. Shortly for this she began experiencing itching and tingling in her ears and face. Her friend told her that her face appeared swollen. She felt like her throat felt scratchy and then for like it was swelling up. She went to local urgent care where she was given IV Benadryl and Solu-Medrol. And route to the hospital she was also given 0.3 mg IM epinephrine. Patient states symptoms are improving. She has a history of allergies to Limes and iodine contrast. No known history of allergic reaction to peanut butter and states she eats evelio butter cups every day. Patient also does endorses chest pain around her front chest wrapping around her sides. No hx prior [place], current nonsmoker, no first-degree family members with history of stroke or [place]. Denies chance of - Related Data Home Medications Medication Instructions Recorded Confirmed Ferrous Sulfate [Iron (65 MG 325 mg PO DAILY 04/15/21 05/05/21 Elemental)] Liraglutide [Victoza 3-Dom] 1.2 mg SQ DAILY 04/15/21 05/05/21 Multivitamins, Thera [Multivitamin 1 tab PO DAILY 04/15/21 05/05/21 (formulary)] traMADol HCL [Ultram] 50 mg PO BID PRN 04/15/21 05/05/21 Ibuprofen [Motrin] 800 mg PO Q8H 05/05/21 05/05/21 Previous Rx's Medication Instructions Recorded Omeprazole [PriLOSEC] 40 mg PO DAILY #14 cap 04/19/21 predniSONE [Deltasone] 60 mg PO DAILY 5 Days #15 tab 02/17/23 Albuterol Nebulized [Ventolin 2.5 mg INHALATION Q4H PRN #75 ml 04/27/23 Nebulized] Ibuprofen [Motrin] 800 mg PO Q8HR PRN #30 tab 04/27/23 Allergies Allergy/AdvReac Type Severity Reaction Status Date / Time Iodinated Contrast Media Allergy BURNING Verified 12/28/23 09:15 FROM THE INSIDE/ITCHING kiwi Allergy Anaphylaxis Verified 04/27/23 09:15 Review of Systems ROS Statement: Those systems with pertinent positive or pertinent negative responses have been documented in the HPI. ROS Other: All systems not noted in ROS Statement are negative. Past Medical History Past Medical History: Asthma, Musculoskeletal Disorder Additional Past Medical History / Comment(s): Hx Concussions, Bronchitis. Herniated discs in back/neck, pinched nerves. Edema Lt ankle, foot for sprain. History of Any Multi-Drug Resistant Organisms: None Reported Past Surgical History: Orthopedic Surgery Additional Past Surgical History / Comment(s): D&C X2. CTR, tendon surg Rt wrist Past Anesthesia/Blood Transfusion Reactions: Motion Sickness Past Psychological History: Anxiety, Depression, PTSD Smoking Status: Current every day smoker Past Alcohol Use History: None Reported Past Drug Use History: Marijuana - Past Family History Mother Family Medical History: Respiratory Disorder Brother(s) Family Medical History: Cancer Additional Family Medical History / Comment(s): possible lung cancer Sister(s) Family Medical History: Cancer Additional Family Medical History / Comment(s): renal cancer General Exam - General Exam Comments Initial Comments: PE: CONSTITUTIONAL: No apparent distress, well appearing SKIN: Warm, dry, no jaundice, small amount of hives on face EYES: Pupils are equally round, extraocular movements intact without nystagmus, clear conjunctiva, non-icteric sclera HENT: Normocephalic, atraumatic, moist mucus membranes, oropharynx clear without exudates, no oropharyngeal tongue swelling NECK: , Full range of motion, normal appearance PULMONARY: Scant wheezes in the bilateral lung bases, no rhonchi, stridor or rales, no increased work of breathing, no bung dropper muscle use no Tachypnea CARDIOVASCULAR: Regular rate, rhythm, normal S1 and S2. No appreciated murmurs, rubs or gallops. Strong radial pulses with intact distal perfusion. No lower extremity edema GASTROINTESTINAL: Soft, non-tender, non-distended, no palpable masses, no rebound or guarding. No hepatosplenomegaly MUSCULOSKELETAL: Extremities have no gross deformity, no edema, redness, or swelling. No calf swelling ot TTP. NEUROLOGIC:_a/o x 3, GCS 15, normal mentation and speech. Moves all extremities x 4 without motor or sensory deficit PSYCHIATRIC:_normal mood and affect, thought process is clear and linear Limitations: no limitations Course Vital Signs 12/31/23 12/31/23 12/31/23 16:58 17:35 17:43 Temperature 98.4 F Pulse Rate 86 75 74 Respiratory 24 Rate Blood Pressure 146/93 O2 Sat by Pulse 100 Oximetry 12/31/23 18:54 Temperature Pulse Rate 86 Respiratory 18 Rate Blood Pressure 140/90 O2 Sat by Pulse 98 Oximetry EKG Findings - EKG Comments: EKG Findings:: Sinus rhythm, rate 67 bpm, UT interval 159 ms, QRS duration 94 ms, QT/QTc 385/401 ms, normal axis, no ST elevations or depressions, no delta waves or Brugada pattern Medical Decision Making - Medical Decision Making Was pt. sent in by a medical professional or institution (, PA, COGENERATION OPERATOR, urgent care, hospital, or penitentiary...) When possible be specific @ -No Did you speak to anyone other than the patient for history (EMS, parent, family, police, friend...)? What history was obtained from this source @EMS personnel assisted in providing history Did you review nursing and triage notes (agree or disagree)? Why? @ -I reviewed and agree with nursing and triage notes Were old charts reviewed (outside hosp., previous admission, EMS record, old EKG, old radiological studies, urgent care reports/EKG's, penitentiary records)? Report findings @ -No old charts were reviewed Differential Diagnosis (chest pain, altered mental status, abdominal pain women, abdominal pain men, vaginal bleeding, weakness, fever, dyspnea, syncope, headache, dizziness, GI bleed, back pain, seizure, CVA, palpatations, mental health, musculoskeletal)? @Differential diagnosis remains broad however top considerations include allergic reaction, anaphylaxis, asthma exacerbation, COPD exacerbation this is not all-inclusive list EKG interpreted by me (3pts min.). @ -As above X-rays interpreted by me (1pt min.). @ -No cardiomegaly, effusions or consolidations CT interpreted by me (1pt min.). @ -None done U/S interpreted by me (1pt. min.). @ -None done What testing was considered but not performed or refused? (CT, X-rays, U/S, labs)? Why? @ -None What meds were considered but not given or refused? Why? @ -None Did you discuss the management of the patient with other professionals (professionals i.e. , PA, COGENERATION OPERATOR, lab, RT, psych nurse, social science professor, lead level designer, teacher, chief accounting officer, case advocate)? Give summary @ -No Was smoking cessation discussed for >3mins.? @ -No Was critical care preformed (if so, how long)? @ -No Were there social determinants of health that impacted care today? How? (Homelessness, low income, unemployed, alcoholism, drug addiction, transportation, low edu. Level, literacy, decrease access to med. care, senior living, rehab)? @ -No Was there de-escalation of care discussed even if they declined (Discuss DNR or withdrawal of care, Hospice)? @ -No What co-morbidities impacted this encounter? (DM, HTN, Smoking, COPD, CAD, Cancer, CVA, ARF, Chemo, Hep., AIDS, mental health diagnosis, sleep apnea, morbid obesity)? @ -COPD Was patient admitted / discharged? Hospital course, mention meds given and route, prescriptions, significant lab abnormalities, going to OR and other pertinent info. @ -Hospital course left AGAINST MEDICAL ADVICE Patient is a 33-year-old female past medical history of asthma/COPD, allergies to kiwi and iodinated contrast presenting for an allergic reaction after drinking an iced coffee and eating peanut butter cups. Was given 125 mg Solu- Medrol and 50 mg of Benadryl IV at urgent care prior to arrival in the ER. Given 0.3 mg of IM epinephrine via EMS. On arrival here patient has facial hives, no tongue swelling, no oropharyngeal edema, no stridor, no lip swelling, scant wheezes in the lung bases, no hyperactive bowel sounds states patient is are improving. Does note chest tightness/pain around her ribs and persistent itching. Given patient's improving symptoms additional IM epinephrine at this point however will reassess. Due to chest pain after IM epinephrine administration I would obtain basic labs, troponin EKG to ensure no signs of ACS triggered by IM epinephrine. IV fluids ordered. Per EMS it did appear that patient's IV from urgent care infiltrated and medications administered there may not have gone into the venous system. I will order additional Benadryl given persistence of patient's symptoms and question of whether or not Benadryl was able to be effectively administered. Patient is agreeable with plan of care. Labs reassuring. Potassium 3.3. Did order replacement and discussed plan for administration with patient. Patient requesting discharge. I did discuss with her that I would like to keep her for observation for falls 4 hours after IM epinephrine administration due to potential biphasic reaction and explained this to patient. Additionally would like to obtain repeat troponin during that time to ensure no elevation, discussed possibility for ACS and if chest pain secondary to ACS the potential adverse cardiac event and if left untreated and unidentified. Patient states that she has children at home and would like to be discharged. Patient able to repeat back to me in her own words as her understanding of risks of leaving today. Patient ultimately discharged AGAINST MEDICAL ADVICE. Undiagnosed new problem with uncertain prognosis? @ -No Drug Therapy requiring intensive monitoring for toxicity (Heparin, Nitro, Insulin, Cardizem)? @ -No Were any procedures done? @ -No Diagnosis/symptom? @ -Anaphylactic reaction, chest pain Acute, or Chronic, or Acute on Chronic? @ -Acute Uncomplicated (without systemic symptoms) or Complicated (systemic symptoms)? @ -Complicated Side effects of treatment? @ -No Exacerbation, Progression, or Severe Exacerbation? @ -No Poses a threat to life or bodily function? How? (Chest pain, [place], [place], pneumonia, PE, COPD, DKA, ARF, appy, cholecystitis, CVA, Diverticulitis, Homicidal, Suicidal, threat to staff... and all critical care pts) @ -Potentially - Lab Data Result diagrams: 12/31/23 17:08 12/31/23 17:08 Lab Results 12/31/23 12/31/23 12/31/23 Range/Units 17:08 17:08 17:08 WBC 8.2 (3.8-10.6) k/uL RBC 5.39 (3.80-5.40) m/uL Hgb 14.0 (11.4-16.0) gm/dL Hct 43.9 (34.0-46.0) % MCV 81.3 (80.0-100.0) fL MCH 26.0 (25.0-35.0) pg MCHC 32.0 (31.0-37.0) g/dL RDW 13.4 (11.5-15.5) % Plt Count 228 (150-450) k/uL MPV 6.9 Neutrophils % 61 % Lymphocytes % 28 % Monocytes % 5 % Eosinophils % 3 % Basophils % 1 % Neutrophils # 5.0 (1.3-7.7) k/uL Lymphocytes # 2.3 (1.0-4.8) k/uL Monocytes # 0.4 (0-1.0) k/uL Eosinophils # 0.2 (0-0.7) k/uL Basophils # 0.0 (0-0.2) k/uL Hypochromasia Slight PT 11.1 (10.0-12.5) sec INR 1.0 (<1.2) APTT 26.9 (22.0-30.0) sec Sodium 139 (137-145) mmol/L Potassium 3.3 L (3.5-5.1) mmol/L Chloride 108 H (98-107) mmol/L Carbon Dioxide 24 (22-30) mmol/L Anion Gap 7 mmol/L BUN 17 (7-17) mg/dL Creatinine 0.70 (0.52-1.04) mg/dL Est GFR (CKD-EPI)AfAm >90 (>60 ml/min/1.73 sqM) Est GFR (CKD-EPI)NonAf >90 (>60 ml/min/1.73 sqM) Glucose 97 (74-99) mg/dL Calcium 9.4 (8.4-10.2) mg/dL Total Bilirubin 0.3 (0.2-1.3) mg/dL AST 21 (14-36) U/L ALT 17 (4-34) U/L Alkaline Phosphatase 65 (38-126) U/L Troponin I (0.000-0.034) ng/mL NT-Pro-B Natriuret Pep 179 pg/mL Total Protein 6.6 (6.3-8.2) g/dL Albumin 4.0 (3.5-5.0) g/dL 12/31/23 Range/Units 17:08 WBC (3.8-10.6) k/uL RBC (3.80-5.40) m/uL Hgb (11.4-16.0) gm/dL Hct (34.0-46.0) % MCV (80.0-100.0) fL MCH (25.0-35.0) pg MCHC (31.0-37.0) g/dL RDW (11.5-15.5) % Plt Count (150-450) k/uL MPV Neutrophils % % Lymphocytes % % Monocytes % % Eosinophils % % Basophils % % Neutrophils # (1.3-7.7) k/uL Lymphocytes # (1.0-4.8) k/uL Monocytes # (0-1.0) k/uL Eosinophils # (0-0.7) k/uL Basophils # (0-0.2) k/uL Hypochromasia PT (10.0-12.5) sec INR (<1.2) APTT (22.0-30.0) sec Sodium (137-145) mmol/L Potassium (3.5-5.1) mmol/L Chloride (98-107) mmol/L Carbon Dioxide (22-30) mmol/L Anion Gap mmol/L BUN (7-17) mg/dL Creatinine (0.52-1.04) mg/dL Est GFR (CKD-EPI)AfAm (>60 ml/min/1.73 sqM) Est GFR (CKD-EPI)NonAf (>60 ml/min/1.73 sqM) Glucose (74-99) mg/dL Calcium (8.4-10.2) mg/dL Total Bilirubin (0.2-1.3) mg/dL AST (14-36) U/L ALT (4-34) U/L Alkaline Phosphatase (38-126) U/L Troponin I <0.012 (0.000-0.034) ng/mL NT-Pro-B Natriuret Pep pg/mL Total Protein (6.3-8.2) g/dL Albumin (3.5-5.0) g/dL Disposition Clinical Impression: Anaphylaxis, Chest pain Disposition: LEFT AGAINST MEDICAL ADVICE Condition: Stable Is patient prescribed a controlled substance at d/c from ED?: No Referrals: Nonstaff,Physician [Primary Care Provider] - 1-2 days
[2023-12-31] MEDS: SODIUM CHLORIDE 0.9% 1,000 ML IV STA (17:09)
[2023-12-31] MEDS: ACETAMINOPHEN TAB 500 MG TAB PO STA (17:12)
[2023-12-31] MEDS: FAMOTIDINE 20 MG/2 ML VIAL IV STA (17:13)
[2023-12-31] MEDS: KETOROLAC 15 MG/ML 1 ML VIAL IVP STA (17:13)
[2023-12-31] MEDS: diphenhydrAMINE 50 MG/ML 1 ML VIAL IVP STA (17:13)
[2023-12-31 17:26] LABS: Basophils % (A) 1 %; Eosinophils # (A) 0.2 k/uL (0-0.7); Eosinophils % (A) 3 %; HCT 43.9 % (34.0-46.0); Hypochromasia Slight; Lymphocytes # (A) 2.3 k/uL (1.0-4.8); Lymphocytes % (A) 28 %; MCV 81.3 fL (80.0-100.0); Mean Platelet Volume 6.9; Monocytes # (A) 0.4 k/uL (0-1.0); Monocytes % (A) 5 %; Neutrophils % (A) 61 %; Platelet Count 228 k/uL (150-450); RBC 5.39 m/uL (3.80-5.40); RDW 13.4 % (11.5-15.5); WBC 8.2 k/uL (3.8-10.6)
--- NOTE | 2023-12-31 17:26 | XR ---
EXAMINATION TYPE: XR chest 2V DATE OF EXAM: 12/31/2023 5:17 PM CLINICAL INDICATION: Female, 33 years old with history of wheezing, CP, given epi allergic reaction; [facility] COMPARISON: Chest radiographs from 02/17/2023 TECHNIQUE: XR chest 2V Frontal view of the chest. FINDINGS: Lungs/Pleura: There is no evidence of pleural effusion, focal consolidation, or pneumothorax. Pulmonary vascularity: Unremarkable. Heart/mediastinum: Cardiomediastinal silhouette is unremarkable. Musculoskeletal: No acute osseous pathology. Other findings: None IMPRESSION: No acute cardiopulmonary disease/process.
[2023-12-31 17:33] LABS: Partial Thromboplastin Time 26.9 sec (22.0-30.0); Prothrombin Time 11.1 sec (10.0-12.5)
[2023-12-31] MEDS: IPRATROPIUM-ALBUTEROL 3 ML NEB INHALATION STA (17:35)
[2023-12-31 17:38] LABS: ALT 17 U/L (4-34); AST 21 U/L (14-36); African American GFR (CKD) >90 (>60 ml/min/1.73 sqM); Alkaline Phosphatase 65 U/L (38-126); Anion Gap 7 mmol/L; Blood Urea Nitrogen 17 mg/dL (7-17); Calcium 9.4 mg/dL (8.4-10.2); Carbon Dioxide 24 mmol/L (22-30); Chloride 108 mmol/L (98-107); Glucose 97 mg/dL (74-99); Non-African American GFR(CKD) >90 (>60 ml/min/1.73 sqM); Potassium 3.3 mmol/L (3.5-5.1); Sodium 139 mmol/L (137-145); Total Bilirubin 0.3 mg/dL (0.2-1.3); Total Protein 6.6 g/dL (6.3-8.2)
[2023-12-31 17:47] LABS: NT-Pro-B-Type Natriuretic Pept 179 pg/mL
[2023-12-31] MEDS ORDERED: POTASSIUM BICARBONATE/CIT AC 20 MEQ TABLET.EFF PO ONE (18:42)
[2023-12-31 18:55] VITALS: BP 140/90; PULSE 86; RESP 18
== END 2023-12-31 18:55 | disposition left against medical advice (07) ==
LOC: EC 16:53
DX: T78.01XA Anaphylactic reaction due to peanuts, initial encounter (principal); R07.9 Chest pain, unspecified; F17.200 Nicotine dependence, unspecified, uncomplicated; Z91.041 Radiographic dye allergy status
CPT/HCPCS: 36415; 94640; 93005; 83880; 80053; 84484; 85025; 85610; 85730; 71046; 99284; 96374; 96375; 96361; J1200; J3490; J1885